=== PATIENT | female | born 1950 | race Caucasian/White ===

== ENCOUNTER 2016-08-08 05:58 | Day surgery (SDC) | payer BC ==
[~2016-08-08] VITALS: Ht 182.9 cm; Wt 116.7 kg
[~2016-08-08 05:58] MED LIST: ACET-2321 PO; EZET10TA PO; FURO-153 PO; GLYB5TAB8 PO; MV-M1TAB18 PO; POTA-12 PO; PRIM50TA30 PO; RIVA20TA PO; SITA1TBM4 PO; SOTA120T PO
--- OUTSIDE RECORDS SUMMARY | 2016-08-08 06:02 | XMS REPORT | Referral Summary ---
Author Author [facility] Organization [facility] Address Unknown Phone Unavailable Care Team Providers Care Typesetting Machine Operator/Tender Name Role Phone Levi Rowe Primary Care Physician [phone] Encounter VC Date(s): 04/16/16 - 04/16/16 [facility] [address] [place] [address] [place] [address]- Discharge Diagnosis: History of adenomatous polyp of colon Discharge Disposition: 01-Home or Self Care Attending Physician: Johnson Palacios MD Admitting Physician: Johnson Palacios MD Referring Physician: Levi Rowe DO Vital Signs Most recent to 1 oldest [Reference Range]: Temperature Tympanic 36.4 degC [36.6-38.1 degC] *LOW* (04/16/16 2:34 PM) Peripheral Pulse 64 bpm Rate [60-100 bpm] (04/16/16 2:34 PM) Blood Pressure 140/80 mmHg [90-140/60-90 mmHg] (04/16/16 2:34 PM) Problem List Condition Effective Dates Status Health Status Informant At risk for activity Active intolerance(Confirme d)1 At risk for Active falls(Confirmed)2 At risk for Active injury(Confirmed)3 Basal cell Active carcinoma(Confirmed) Capillary Active hemangioma(Confirmed ) Hemangioma Active (disorder)(Confirmed ) Inflamed seborrheic Active keratosis (disorder)(Confirmed ) Obesity(Confirmed) Active patient Obesity(Confirmed) Active patient Osteoarthritis of Active right knee(Confirmed) Pure Active hypercholesterolemia (Confirmed) Seborrheic Active keratosis(Confirmed) Seborrheic Active keratosis, inflamed(Confirmed) Solar Active degeneration(Confirm ed) Tachycardia, Active unspecified(Confirme d) Tissue perfusion Active alteration(Confirmed )4 Tremors(Confirmed)5 Active Type 2 Active diabetes(Confirmed) Unspecified Active essential hypertension(Confirm ed) 1Problem added automatically by system based on initiation of At Risk for Activity Intolerance Plan of Care 2This problem was added by Discern Expert. 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 Allergies, Adverse Reactions, Alerts Substance Reaction Severity Status codeine Active iodine famiy Hx of anaphylaxis Active Latex Active penicillin Active statins Muscle weakness Active sulfanilamide topical Active Medications furosemide 40 mg oral tablet See Instructions, TAKE ONE TABLET BY MOUTH DAILY, # 30 tabs, 1 Refill(s), eRx: [facility] #[id number], TAKE ONE TABLET BY MOUTH DAILY Start Date: 03/05/16 Status: Ordered Glucometer Lancets (DME) DME Item Lancets, Ultra Thin - Use to check blood sugars 3-4 times a day, Supply Start Date: 03/03/14 Status: Ordered glyBURIDE 5 mg oral tablet See Instructions, TAKE ONE TABLET BY MOUTH DAILY, # 30 tabs, eRx: [facility] #[id number], TAKE ONE TABLET BY MOUTH DAILY Start Date: 01/22/16 Status: Ordered Janumet XR 50 mg-1000 mg oral tablet, extended release See Instructions, TAKE TWO TABLETS BY MOUTH EVERY EVENING, # 180 unknown unit, eRx: [facility] #[id number], TAKE TWO TABLETS BY MOUTH EVERY EVENING Start Date: 02/19/16 Status: Ordered potassium chloride 10 mEq oral capsule, extended release See Instructions, TAKE ONE CAPSULE BY MOUTH DAILY, # 90 unknown unit, eRx: [facility] #[id number], TAKE ONE CAPSULE BY MOUTH DAILY Start Date: 03/19/16 Status: Ordered primidone 50 mg oral tablet 50 mg 1 tabs, Oral, TID, # 90 tabs, 0 Refill(s) Start Date: 06/29/15 Status: Ordered sotalol 120 mg oral tablet See Instructions, TAKE ONE TABLET BY MOUTH TWICE A DAY, # 60 tabs, 3 Refill(s), eRx: [facility] #[id number], TAKE ONE TABLET BY MOUTH TWICE A DAY Start Date: 03/18/16 Status: Ordered Tylenol Extra Strength 500 mg oral tablet 500 mg 1 tabs, Oral, q4hr, as needed for pain, # 60 tabs, 0 Refill(s) Start Date: 10/24/14 Status: Ordered Tylenol PM 2 tabs, Oral, Bedtime (once a day), 0 Refill(s) Start Date: 10/24/14 Status: Ordered Xarelto 20 mg oral tablet See Instructions, TAKE ONE TABLET BY MOUTH EVERY EVENING WITH EVENING MEAL, # 30 tabs, 2 Refill(s), eRx: [facility] #[id number], TAKE ONE TABLET BY MOUTH EVERY EVENING WITH EVENING MEAL Start Date: 04/01/16 Status: Ordered Zetia 10 mg oral tablet See Instructions, TAKE ONE TABLET BY MOUTH DAILY, # 30 tabs, 2 Refill(s), eRx: [facility] #[id number], TAKE ONE TABLET BY MOUTH DAILY Start Date: 04/01/16 Status: Ordered Results No data available for this section Immunizations Vaccine Date Refusal Reason influenza virus vaccine, inactivated1 03/01/14 influenza virus vaccine, live 03/02/13 1Result Comment: [03/08/2014] see scanned doc. Procedures Procedure Date Related Diagnosis Body Site Colonoscopy1 2011 Hysterectomy2 1989 Excision of basal cell carcinoma 38162 C-Scope W/2 Adenomatous 2TAH-BSO Fro Endometriosis and Ovarian Cysts Social History Social History Type Response Smoking Status Never smoker Assessment and Plan Extracted from: Title: Ambulatory Patient Education Author: Johnson Palacios MD Date: 04/16/16 Family Medicine Colon Polyps Polyps are lumps of extra tissue growing inside the body. Polyps can grow in the large intestine (colon). Most colon polyps are noncancerous (benign). However, some colon polyps can become cancerous over time. Polyps that are larger than a pea may be harmful. To be safe, caregivers remove and test all polyps. CAUSES Polyps form when mutations in the genes cause your cells to grow and divide even though no more tissue is needed. RISK FACTORS There are a number of risk factors that can increase your chances of getting colon polyps. They include: Being older than 50 years. Family history of colon polyps or colon cancer. Long-term colon diseases, such as colitis or Crohn disease. Being overweight. Smoking. Being inactive. Drinking too much alcohol. SYMPTOMS Most small polyps do not cause symptoms. If symptoms are present, they may include: Blood in the stool. The stool may look dark red or black. Constipation or diarrhea that lasts longer than 1 week. DIAGNOSIS People often do not know they have polyps until their caregiver finds them during a regular checkup. Your caregiver can use 4 tests to check for polyps: Digital rectal exam. The caregiver wears gloves and feels inside the rectum. This test would find polyps only in the rectum. Barium enema. The caregiver puts a liquid called barium into your rectum before taking X-rays of your colon. Barium makes your colon look white. Polyps are dark, so they are easy to see in the X-ray pictures. Sigmoidoscopy. A thin, flexible tube (sigmoidoscope) is placed into your rectum. The sigmoidoscope has a light and tiny camera in it. The caregiver uses the sigmoidoscope to look at the last third of your colon. Colonoscopy. This test is like sigmoidoscopy, but the caregiver looks at the entire colon. This is the most common method for finding and removing polyps. TREATMENT Any polyps will be removed during a sigmoidoscopy or colonoscopy. The polyps are then tested for cancer. PREVENTION To help lower your risk of getting more colon polyps: Eat plenty of fruits and vegetables. Avoid eating fatty foods. Do not smoke. Avoid drinking alcohol. Exercise every day. Lose weight if recommended by your caregiver. Eat plenty of calcium and folate. Foods that are rich in calcium include milk, cheese, and broccoli. Foods that are rich in folate include chickpeas, kidney beans, and spinach. HOME CARE INSTRUCTIONS Keep all follow-up appointments as directed by your caregiver. You may need periodic exams to check for polyps. SEEK MEDICAL CARE IF: You notice bleeding during a bowel movement. This information is not intended to replace advice given to you by your health care provider. Make sure you discuss any questions you have with your health care provider. Document Released: 01/22/2005 Document Revised: 05/19/2015 Document Reviewed: [email or web address] Interactive Patient Education 2016 [email or web address] No follow up information was provided.
--- OUTSIDE RECORDS SUMMARY | 2016-08-08 06:02 | XMS REPORT | Referral Summary ---
Author Author [facility] Organization [facility] Address Unknown Phone Unavailable Care Team Providers Care Natural Gas Technician Name Role Phone Levi Rowe Primary Care Physician [phone] Encounter VC Date(s): 10/16/14 - 10/16/14 [facility] [address] [place], [place] [address] Discharge Disposition: 01-Home or Self Care Attending Physician: Carley Mchugh MD Admitting Physician: Carley Mchugh MD Referring Physician: Paris Street MD Vital Signs No data available for this section Problem List Condition Effective Dates Status Health [...] Muscle weakness Active sulfanilamide topical Active Medications Glucometer Lancets (DME) DME Item Lancets, Ultra Thin - Use to check blood sugars 3-4 times a day, Supply Start Date: 03/03/14 Status: Ordered glyBURIDE 5 mg oral tablet See Instructions, TAKE ONE TABLET BY MOUTH DAILY, # 30 tabs, 1 Refill(s), eRx: [facility] #[id number], TAKE ONE TABLET BY MOUTH DAILY Start Date: 03/20/15 Status: Ordered Janumet XR 50 mg-1000 mg oral tablet, extended release 2 tabs, Oral, qPM, # 180 tabs, 3 Refill(s), Pharmacy: [facility] #[id number] Start Date: 12/16/14 Status: Ordered Lasix 40 mg oral tablet 1 tabs, Oral, Daily, # 90 tabs, 2 Refill(s), Pharmacy: [id number], 1 tabs Oral Daily Start Date: 08/19/14 Status: Ordered potassium chloride 10 mEq oral capsule, extended release See Instructions, TAKE ONE CAPSULE BY MOUTH DAILY, # 90 unknown unit, 2 Refill(s ), eRx: [facility] #[id number], TAKE ONE CAPSULE BY MOUTH DAILY Start Date: 01/23/15 Status: Ordered primidone 50 mg, Oral, BID, 0 Refill(s) Start Date: 03/29/14 Status: Ordered sotalol 120 mg oral tablet See Instructions, TAKE ONE TABLET BY MOUTH TWICE A DAY, # 60 tabs, 5 Refill(s), eRx: [facility] #[id number], TAKE ONE TABLET BY MOUTH TWICE A DAY Start Date: 12/26/14 Status: Ordered Tylenol Extra Strength 500 mg oral tablet 500 mg 1 tabs, Oral, q4hr, as needed for pain, # 60 tabs, 0 Refill(s) Start Date: 10/24/14 Status: Ordered Tylenol PM 2 tabs, Oral, Bedtime (once a day), 0 Refill(s) Start Date: 10/24/14 Status: Ordered Xarelto 20 mg oral tablet 20 mg 1 tabs, Oral, With Lunch, 0 Refill(s) Start Date: 10/18/14 Status: Ordered Zetia 10 mg oral tablet See Instructions, TAKE ONE TABLET BY MOUTH DAILY, # 90 tabs, 1 Refill(s), eRx: [facility] #[id number], TAKE ONE TABLET BY MOUTH DAILY Start Date: 02/27/15 Status: Ordered Results No data available for this section Immunizations Vaccine Date Refusal Reason influenza virus vaccine, inactivated1 03/01/14 influenza virus vaccine, live 03/02/13 1Result Comment: [03/08/2014] see scanned doc. Procedures Procedure Date Related Diagnosis Body Site Colonoscopy1 2011 Hysterectomy2 1989 Excision of basal cell carcinoma 18173 C-Scope W/2 Adenomatous 2TAH-BSO Fro Endometriosis and Ovarian Cysts Social History Social History Type Response Smoking Status Never smoker Assessment and Plan No data available for this section
--- OUTSIDE RECORDS SUMMARY | 2016-08-08 06:02 | XMS REPORT | Referral Summary ---
Author Author [facility] Organization [facility] Address Unknown Phone Unavailable Care Team Providers Care Supervisor Public Message Service Name Role Phone Levi Rowe Primary Care Physician [phone] Encounter VC Date(s): 10/14/14 - 10/14/14 [facility] [place] [address]- Discharge Diagnosis: Diabetes mellitus, type II Discharge Diagnosis: Diarrhea Discharge Disposition: 01-Home or Self Care Attending Physician: Levi Rowe DO Admitting Physician: Levi Rowe DO Vital Signs Most recent to 1 oldest [Reference Range]: Temperature Tympanic 36.6 degC [36.6-38.1 degC] (10/14/14 2:24 PM) Blood Pressure 130/80 mmHg [90-140/60-90 mmHg] (10/14/14 2:24 PM) Problem List Condition Effective Dates Status [...] DAILY, # 30 tabs, 1 Refill(s), eRx: [facility] #[id number], TAKE ONE TABLET BY MOUTH DAILY Start Date: 03/20/15 Status: Ordered Janumet XR 50 mg-1000 mg oral tablet, extended release 2 tabs, Oral, qPM, # 180 tabs, 3 Refill(s), Pharmacy: [facility] #[id number] Start Date: 12/16/14 Status: Ordered Lasix 40 mg oral tablet 1 tabs, Oral, Daily, # 90 tabs, 2 Refill(s), Pharmacy: [id number], 1 tabs Oral Daily Start Date: 08/19/14 Status: Ordered potassium chloride 10 mEq oral capsule, extended release See Instructions, TAKE ONE CAPSULE BY MOUTH DAILY, # 90 unknown unit, 2 Refill(s ), eRx: [facility] #[id number], TAKE ONE CAPSULE BY MOUTH DAILY Start Date: 01/23/15 Status: Ordered primidone 50 mg, Oral, BID, 0 Refill(s) Start Date: 03/29/14 Status: Ordered sotalol 120 mg oral tablet See Instructions, TAKE ONE TABLET BY MOUTH TWICE A DAY, # 60 tabs, 5 Refill(s), eRx: [facility] #[id number], TAKE ONE TABLET BY MOUTH TWICE A [...] DAILY, # 90 tabs, 1 Refill(s), eRx: [facility] #[id number], TAKE ONE TABLET BY MOUTH DAILY Start Date: 02/27/15 Status: Ordered Results No data available for this section Immunizations Vaccine Date Refusal Reason influenza virus vaccine, inactivated1 03/01/14 influenza virus vaccine, live 03/02/13 1Result Comment: [03/08/2014] see scanned doc. Procedures Procedure Date Related Diagnosis Body Site Colonoscopy1 2011 Hysterectomy2 1989 Excision of basal cell carcinoma 46330 C-Scope W/2 Adenomatous 2TAH-BSO Fro Endometriosis and Ovarian Cysts Social History Social History Type Response Smoking Status Never smoker Assessment and Plan Extracted from: Title: Office Visit Note Author: Levi Rowe DO Date: 10/14/14 Assessment/Plan Diabetes mellitus, type II 1. Based on her last A1c and her home blood sugars her diabetes is relatively controlled. 2. We ' ll start her on Janumet metformin extended release. 3. We plan on repeating her A1c 3 months from previous. 4. Continue checking blood sugars fasting and 2 hours postprandial following the largest meal of the day, for 3 days per week. 5. Recommended chronic diabetes management appointment 3 months from previous. Diarrhea 1. I suspect her diarrhea likely stools are related to the metformin in particular since she's taking it 4 times a day. 2. Discontinue the metformin. 3. We'll start her on Janumet extended release, , one tablet twice a day. 4. She'll notify me next week if the diarrhea persists. 5. If it resolved with the use of the extended release medication then we plan on changing her to this regimen if her insurance to medication. 6. If she has worsening symptoms then she may warrant stool studies and further evaluation. Ordered: Office Visit Level 3 Est [address]202
--- OUTSIDE RECORDS SUMMARY | 2016-08-08 06:02 | XMS REPORT | Referral Summary ---
Author Author [facility] Organization [facility] Address Unknown Phone Unavailable Care Team Providers Care Building Construction Foreman Name Role Phone Levi Rowe Primary Care Physician [phone] Encounter [facility] Date(s): 09/14/14 - 09/14/14 [facility] [address] [place], [place] [address] Discharge Disposition: 01-Home or Self Care Attending Physician: Jaun Dumont MD Admitting Physician: Jaun Dumont MD Vital Signs Most recent to 1 oldest [Reference Range]: Peripheral Pulse 59 bpm Rate [60-100 bpm] *LOW* (09/14/14 2:01 PM) Blood Pressure 128/86 mmHg [90-140/60-90 mmHg] (09/14/14 2:01 PM) Problem List Condition Effective Dates Status [...] BY MOUTH DAILY, # 30 tabs, eRx: [facility] #[id number], TAKE ONE TABLET BY MOUTH DAILY Start Date: 02/15/15 Status: Ordered Janumet XR 50 mg-1000 mg oral tablet, extended release 2 tabs, Oral, qPM, # 180 tabs, 3 Refill(s), Pharmacy: [facility] #[id number] Start Date: 12/16/14 Status: Ordered Lasix 40 mg oral tablet 1 tabs, Oral, Daily, # 90 tabs, 2 Refill(s), Pharmacy: [facility] 24[facility], 1 tabs Oral Daily Start Date: 08/19/14 Status: Ordered potassium chloride 10 mEq oral capsule, extended release See Instructions, TAKE ONE CAPSULE BY MOUTH DAILY, # 90 unknown unit, 2 Refill(s ), eRx: [facility] #[id number], TAKE ONE CAPSULE BY MOUTH DAILY Start Date: 01/23/15 Status: Ordered primidone 50 mg, Oral, BID, 0 Refill(s) Start Date: 03/29/14 Status: Ordered sotalol 120 mg oral tablet See Instructions, TAKE ONE TABLET BY MOUTH TWICE A DAY, # 60 tabs, 5 Refill(s), eRx: [facility] #[id number], TAKE ONE TABLET BY MOUTH TWICE A [...] DAILY, # 90 tabs, 1 Refill(s), eRx: [facility] #[id number], TAKE ONE TABLET BY MOUTH DAILY Start Date: 02/27/15 Status: Ordered Results No data available for this section Immunizations Vaccine Date Refusal Reason influenza virus vaccine, inactivated1 03/01/14 influenza virus vaccine, live 03/02/13 1Result Comment: [03/08/2014] see scanned doc. Procedures Procedure Date Related Diagnosis Body Site Colonoscopy1 2011 Hysterectomy2 1989 Excision of basal cell carcinoma 60560 C-Scope W/2 Adenomatous 2TAH-BSO Fro Endometriosis and Ovarian Cysts Social History Social History Type Response Smoking Status Never smoker Assessment and Plan No data available for this section
--- OUTSIDE RECORDS SUMMARY | 2016-08-08 06:02 | XMS REPORT | Referral Summary ---
Author Organization Unknown Address Unknown Phone Unavailable Care Team Providers Care Toe Closing Machine Tender Name Role Phone Ayesha Serna Primary Care Physician [phone] Encounter [facility] [id number] Date(s): 09/02/14 - 09/02/14 [facility] [place] [address] [place], [place] [address] Discharge Diagnosis: Type 2 diabetes Discharge Diagnosis: Hypertension Discharge Diagnosis: Preop cardiovascular exam Discharge Diagnosis: Dyslipidemia Discharge Disposition: Home or Self Care Attending Physician: Jaun Dumont MD Admitting Physician: Jaun Dumont MD Vital Signs Most recent to 1 oldest [Reference Range]: Peripheral Pulse 62 bpm Rate [60-100 bpm] (09/02/14 1:53 PM) Blood Pressure 104/80 mmHg [90-140/60-90 mmHg] (09/02/14 1:53 PM) Problem List Condition Effective Dates Status Health Status Informant Basal cell Active carcinoma(Confirmed) Capillary Active hemangioma(Confirmed ) Hemangioma Active (disorder)(Confirmed ) Inflamed seborrheic Active keratosis (disorder)(Confirmed ) Osteoarthritis of Active right knee(Confirmed) Pure Active hypercholesterolemia (Confirmed) Seborrheic Active keratosis(Confirmed) Seborrheic Active keratosis, inflamed(Confirmed) Solar Active degeneration(Confirm ed) Tachycardia, Active unspecified(Confirme d) Tremors(Confirmed)1 Active Type 2 Active diabetes(Confirmed) Unspecified Active essential hypertension(Confirm ed) 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 Allergies, Adverse Reactions, Alerts Substance Reaction Severity Status codeine Active Latex Active penicillin Active statins Muscle weakness Active sulfanilamide topical Active Medications aspirin 325 mg oral tablet 1 tabs, Oral, Daily, 30 min prior Niaspan Special Instructions: 30 min prior Niaspan Start Date: 03/03/14 Status: Ordered bisoprolol 5 mg oral tablet See Instructions, TAKE ONE-HALF TABLET BY MOUTH EVERY DAY, # 45 tabs, 2 Refill(s ), eRx: [facility] #[id number], TAKE ONE-HALF TABLET BY MOUTH EVERY DAY Special Instructions: TAKE ONE-HALF TABLET BY MOUTH EVERY DAY Start Date: 04/28/14 Status: Ordered enalapril 10 mg oral tablet 0.5 tabs, Oral, BID, # 90 tabs, 3 Refill(s), Pharmacy: [facility] [id number], 0.5 tabs Oral BID Start Date: 08/22/14 Status: Ordered Glucometer Lancets (DME) DME Item Lancets, Ultra Thin - Use to check blood sugars 3-4 times a day, Supply Special Instructions: Lancets, Ultra Thin - Use to check blood sugars 3-4 times a day Start Date: 03/03/14 Status: Ordered Lasix 40 mg oral tablet 1 tabs, Oral, Daily, # 90 tabs, 2 Refill(s), Pharmacy: [facility] [id number], 1 tabs Oral Daily Start Date: 08/19/14 Status: Ordered metFORMIN 500 mg oral tablet See Instructions, TAKE ONE TABLET BY MOUTH FOUR TIMES A DAY, # 120 tabs, 2 Refill(s), eRx: [facility] #[id number], TAKE ONE TABLET BY MOUTH FOUR TIMES A DAY Special Instructions: TAKE ONE TABLET BY MOUTH FOUR TIMES A DAY Start Date: 08/22/14 Status: Ordered niacin 750 mg oral tablet, extended release 1 tabs, Oral, Bedtime (once a day), # 30 tabs, 0 Refill(s) Start Date: 09/02/14 Status: Ordered niacin 750 mg oral tablet, extended release See Instructions, TAKE TWO TABLETS BY MOUTH EVERY DAY, # 180 tabs, eRx: [facility] 2428, TAKE TWO TABLETS BY MOUTH EVERY DAY Special Instructions: TAKE TWO TABLETS BY MOUTH EVERY DAY Start Date: 07/28/14 Status: Ordered potassium chloride 10 mEq oral capsule, extended release See Instructions, TAKE ONE CAPSULE BY MOUTH DAILY, # 90 unknown unit, 2 Refill(s ), eRx: [facility] #[id number], TAKE ONE CAPSULE BY MOUTH DAILY Special Instructions: TAKE ONE CAPSULE BY MOUTH DAILY Start Date: 04/21/14 Status: Ordered primidone 10 mg, Oral, BID, 10 mg/5mg, 0 Refill(s) Special Instructions: 10 mg/5mg Start Date: 03/29/14 Status: Ordered Zetia 10 mg oral tablet See Instructions, TAKE ONE TABLET BY MOUTH DAILY, # 90 tabs, 2 Refill(s), eRx: [facility] #[id number], TAKE ONE TABLET BY MOUTH DAILY Special Instructions: TAKE ONE TABLET BY MOUTH DAILY Start Date: 05/09/14 Status: Ordered Results No data available for this section Immunizations Vaccine Date Refusal Reason influenza virus vaccine, inactivated1 03/01/14 influenza virus vaccine, live 03/02/13 1Result Comment: [03/08/2014] see scanned doc. Procedures Procedure Date Related Diagnosis Body Site Colonoscopy1 2011 Hysterectomy2 1989 Excision of basal cell carcinoma 53521 C-Scope W/2 Adenomatous 2TAH-BSO Fro Endometriosis and Ovarian Cysts Social History Social History Type Response Smoking Status Never smoker Assessment and Plan No data available for this section
--- OUTSIDE RECORDS SUMMARY | 2016-08-08 06:02 | XMS REPORT | Referral Summary ---
Author Author [facility] Organization [facility] Address Unknown Phone Unavailable Care Team Providers Care Home Designer Name Role Phone Levi Roew Primary Care Physician [phone] Encounter VC Date(s): 06/29/15 - 06/29/15 [facility] [address] [place], [place] [address] Discharge Diagnosis: Paroxysmal a-fib Discharge Diagnosis: Unspecified essential hypertension Discharge Disposition: 01-Home or Self Care Attending Physician: Caron Short MD Admitting Physician: Caron Short MD Referring Physician: Levi Rowe DO Vital Signs Most recent to 1 oldest [Reference Range]: Peripheral Pulse 60 bpm Rate [60-100 bpm] (06/29/15 11:09 AM) Blood Pressure 130/90 mmHg [90-140/60-90 mmHg] (06/29/15 11:09 AM) Problem List Condition Effective Dates Status Health [...] Active Medications furosemide 40 mg oral tablet 40 mg 1 tabs, Oral, Daily, # 90 tabs, 0 Refill(s), Pharmacy: [facility] # [id number], 1 tabs Oral Daily Start Date: 05/24/15 Status: Ordered Glucometer Lancets (DME) DME Item Lancets, Ultra Thin - Use to check blood sugars 3-4 times a day, Supply Start Date: 03/03/14 Status: Ordered glyBURIDE 5 mg oral tablet See Instructions, TAKE ONE TABLET BY MOUTH DAILY, # 30 tabs, 1 Refill(s), eRx: [facility] #[id number], TAKE ONE TABLET BY MOUTH DAILY Start Date: 06/27/15 Status: Ordered Janumet XR 50 mg-1000 mg oral tablet, extended release 2 tabs, Oral, qPM, # 180 tabs, 3 Refill(s), Pharmacy: [facility] #[id number] Start Date: 12/16/14 Status: Ordered potassium chloride 10 mEq oral capsule, extended release See Instructions, TAKE ONE CAPSULE BY MOUTH DAILY, # 90 unknown unit, 2 Refill(s ), eRx: [facility] #[id number], TAKE ONE CAPSULE BY MOUTH DAILY Start Date: 01/23/15 Status: Ordered primidone 50 mg oral tablet 50 mg 1 tabs, Oral, TID, # 90 tabs, 0 Refill(s) Start Date: 06/29/15 Status: Ordered sotalol 120 mg oral tablet See Instructions, TAKE ONE TABLET BY MOUTH TWICE A DAY, # 60 tabs, 4 Refill(s), eRx: [facility] #[id number], TAKE ONE TABLET BY MOUTH TWICE A DAY Start Date: 06/27/15 Status: Ordered Tylenol Extra Strength 500 mg oral tablet 500 mg 1 tabs, Oral, q4hr, as needed for pain, # 60 tabs, 0 Refill(s) Start Date: 10/24/14 Status: Ordered Tylenol PM 2 tabs, Oral, Bedtime (once a day), 0 Refill(s) Start Date: 10/24/14 Status: Ordered Xarelto 20 mg oral tablet 20 mg 1 tabs, Oral, qPM, # 30 tabs, 0 Refill(s), Pharmacy: [facility] # [id number], 1 tabs Oral qPM Start Date: 06/12/15 Status: Ordered Zetia 10 mg oral tablet See Instructions, TAKE ONE TABLET BY MOUTH DAILY, # 90 tabs, 1 Refill(s), eRx: [facility] #[id number], TAKE ONE TABLET BY MOUTH DAILY Start Date: 02/27/15 Status: Ordered Results No data available for this section Immunizations Vaccine Date Refusal Reason influenza virus vaccine, inactivated1 03/01/14 influenza virus vaccine, live 03/02/13 1Result Comment: [03/08/2014] see scanned doc. Procedures Procedure Date Related Diagnosis Body Site Colonoscopy1 2011 Hysterectomy2 1989 Excision of basal cell carcinoma 33690 C-Scope W/2 Adenomatous 2TAH-BSO Fro Endometriosis and Ovarian Cysts Social History Social History Type Response Smoking Status Never smoker Assessment and Plan Referrals to Other Providers Referred by: Caron Short MD
--- OUTSIDE RECORDS SUMMARY | 2016-08-08 06:02 | XMS REPORT | Referral Summary ---
Author Author [facility] Organization [facility] Address Unknown Phone Unavailable Care Team Providers Care Field Party Manager Name Role Phone Levi Rowe Primary Care Physician [phone] Encounter VC Date(s): 09/14/14 - 09/14/14 [facility] [address], [place] [address] Discharge Disposition: 01-Home or Self Care Attending Physician: Jaun Dumont MD Admitting Physician: Jaun Dumont MD Vital Signs No data available for [...] BY MOUTH DAILY, # 30 tabs, eRx: [facility] #[id number], TAKE ONE TABLET BY MOUTH DAILY Start Date: 02/15/15 Status: Ordered Janumet XR 50 mg-1000 mg oral tablet, extended release 2 tabs, Oral, qPM, # 180 tabs, 3 Refill(s), Pharmacy: [facility] #[id number] Start Date: 12/16/14 Status: Ordered Lasix 40 mg oral tablet 1 tabs, Oral, Daily, # 90 tabs, 2 Refill(s), Pharmacy: [id number], 1 tabs Oral Daily Start Date: 08/19/14 Status: Ordered potassium chloride 10 mEq oral capsule, extended release See Instructions, TAKE ONE CAPSULE BY MOUTH DAILY, # 90 unknown unit, 2 Refill(s ), eRx: [facility] #[id number], TAKE ONE CAPSULE BY MOUTH DAILY Start Date: 01/23/15 Status: Ordered primidone 50 mg, Oral, BID, 0 Refill(s) Start Date: 03/29/14 Status: Ordered sotalol 120 mg oral tablet See Instructions, TAKE ONE TABLET BY MOUTH TWICE A DAY, # 60 tabs, 5 Refill(s), eRx: [facility] #[id number], TAKE ONE TABLET BY MOUTH TWICE A [...] DAILY, # 90 tabs, 1 Refill(s), eRx: [facility] #[id number], TAKE ONE TABLET BY MOUTH DAILY Start Date: 02/27/15 Status: Ordered Results No data available for this section Immunizations Vaccine Date Refusal Reason influenza virus vaccine, inactivated1 03/01/14 influenza virus vaccine, live 03/02/13 1Result Comment: [03/08/2014] see scanned doc. Procedures Procedure Date Related Diagnosis Body Site Colonoscopy1 2011 Hysterectomy2 1989 Excision of basal cell carcinoma 43339 C-Scope W/2 Adenomatous 2TAH-BSO Fro Endometriosis and Ovarian Cysts Social History Social History Type Response Smoking Status Never smoker Assessment and Plan No data available for this section
--- OUTSIDE RECORDS SUMMARY | 2016-08-08 06:02 | XMS REPORT | Referral Summary ---
Author Author [facility] Organization [facility] Address Unknown Phone Unavailable Care Team Providers Care Insurance Account Specialist Name Role Phone Levi Rowe Primary Care Physician [phone] Encounter VC Date(s): 10/18/14 - 10/18/14 [facility] [address], [place] [address] [place] Discharge Disposition: 01-Home or Self Care Attending Physician: Cierra Roberts NP Admitting Physician: Jaun Dumont MD Vital Signs [...] DAILY, # 30 tabs, 1 Refill(s), eRx: [facility] #[id number], TAKE ONE TABLET BY MOUTH DAILY Start Date: 03/20/15 Status: Ordered Janumet XR 50 mg-1000 mg oral tablet, extended release 2 tabs, Oral, qPM, # 180 tabs, 3 Refill(s), Pharmacy: [facility] #[id number] Start Date: 12/16/14 Status: Ordered Lasix 40 mg oral tablet 1 tabs, Oral, Daily, # 90 tabs, 2 Refill(s), Pharmacy: [id number], 1 tabs Oral Daily Start Date: 08/19/14 Status: Ordered potassium chloride 10 mEq oral capsule, extended release See Instructions, TAKE ONE CAPSULE BY MOUTH DAILY, # 90 unknown unit, 2 Refill(s ), eRx: [facility] #[id number], TAKE ONE CAPSULE BY MOUTH DAILY Start Date: 01/23/15 Status: Ordered primidone 50 mg, Oral, BID, 0 Refill(s) Start Date: 03/29/14 Status: Ordered sotalol 120 mg oral tablet See Instructions, TAKE ONE TABLET BY MOUTH TWICE A DAY, # 60 tabs, 5 Refill(s), eRx: [facility] #[id number], TAKE ONE TABLET BY MOUTH TWICE A [...] DAILY, # 90 tabs, 1 Refill(s), eRx: [facility] #[id number], TAKE ONE TABLET BY MOUTH DAILY Start Date: 02/27/15 Status: Ordered Results No data available for this section Immunizations Vaccine Date Refusal Reason influenza virus vaccine, inactivated1 03/01/14 influenza virus vaccine, live 03/02/13 1Result Comment: [03/08/2014] see scanned doc. Procedures Procedure Date Related Diagnosis Body Site Colonoscopy1 2011 Hysterectomy2 1989 Excision of basal cell carcinoma 99882 C-Scope W/2 Adenomatous 2TAH-BSO Fro Endometriosis and Ovarian Cysts Social History Social History Type Response Smoking Status Never smoker Assessment and Plan No data available for this section
--- OUTSIDE RECORDS SUMMARY | 2016-08-08 06:02 | XMS REPORT | Referral Summary ---
Author Author [facility] Organization [facility] Address Unknown Phone Unavailable Care Team Providers Care Hot Box Checker Name Role Phone Levi Rowe Primary Care Physician [phone] Encounter VC Date(s): 07/03/16 - 07/03/16 [facility] [place] [address]- Discharge Diagnosis: Benign essential tremor Discharge Disposition: 01-Home or Self Care Attending Physician: Levi Rowe DO Admitting Physician: Levi Rowe DO Vital Signs Most recent to 1 oldest [Reference Range]: Temperature Tympanic 36.2 degC [36.6-38.1 degC] *LOW* (07/03/16 8:28 AM) Peripheral Pulse 63 bpm Rate [60-100 bpm] (07/03/16 8:28 AM) Respiratory Rate 18 br/min [14-20 br/min] (07/03/16 8:28 AM) Blood Pressure 130/58 mmHg [90-140/60-90 mmHg] (07/03/16 8:28 AM) SpO2 95 % (07/03/16 8:28 AM) Problem List Condition Effective Dates Status Health Status Informant Paroxysmal Active a-fib(Confirmed) At risk for activity Active intolerance(Confirme d)1 [...] BY MOUTH DAILY, # 30 tabs, eRx: [facility] #[id number] Start Date: 05/07/16 Status: Ordered Glucometer Lancets (DME) DME Item Lancets, Ultra Thin - Use to check blood sugars 3-4 times a day, Supply Start Date: 03/03/14 Status: Ordered glyBURIDE 5 mg oral tablet See Instructions, TAKE ONE TABLET BY MOUTH DAILY, # 30 tabs, eRx: [facility] #[id number], TAKE ONE TABLET BY MOUTH DAILY Start Date: 01/22/16 Status: Ordered Janumet XR 50 mg-1000 mg oral tablet, extended release See Instructions, TAKE TWO TABLETS BY MOUTH EVERY EVENING, # 180 unknown unit, eRx: [facility] #[id number], TAKE TWO TABLETS BY MOUTH EVERY EVENING Start Date: 02/19/16 Status: Ordered potassium chloride 10 mEq oral capsule, extended release See Instructions, TAKE ONE CAPSULE BY MOUTH DAILY, # 90 unknown unit, eRx: [facility] #[id number], TAKE ONE CAPSULE BY MOUTH DAILY Start Date: 03/19/16 Status: Ordered primidone 50 mg oral tablet 50 mg 1 tabs, Oral, TID, # 90 tabs, 0 Refill(s), Pharmacy: [facility] # [id number], 1 tabs Oral TID Start Date: 07/03/16 Status: Ordered sotalol 120 mg oral tablet 120 mg 1 tabs, Oral, BID, # 60 tabs, 3 Refill(s), eRx: [facility] #[id number] Start Date: 03/18/16 Status: Ordered Tylenol Extra Strength 500 mg oral tablet 500 mg 1 tabs, Oral, q4hr, as needed for pain, # 60 tabs, 0 Refill(s) Start Date: 10/24/14 Status: Ordered Tylenol PM 2 tabs, Oral, Bedtime (once a day), 0 Refill(s) Start Date: 10/24/14 Status: Ordered Xarelto 20 mg oral tablet 20 mg 1 tabs, Oral, Daily, # 30 tabs, 5 Refill(s), eRx: [facility] #[id number] Start Date: 06/14/16 Status: Ordered Zetia 10 mg oral tablet See Instructions, TAKE ONE TABLET BY MOUTH DAILY, # 30 tabs, 2 Refill(s), eRx: [facility] #[id number] Start Date: 07/01/16 Status: Ordered Results No data available for this section Immunizations Given and Recorded Vaccine Date Status Refusal Reason influenza virus vaccine, inactivated1 03/01/14 Recorded influenza virus vaccine, live 03/02/13 Given 1Result Comment: [03/08/2014] see scanned doc. Procedures Procedure Date Related Diagnosis Body Site Colonoscopy1 2011 Hysterectomy2 1989 Excision of basal cell carcinoma 62783 C-Scope W/2 Adenomatous 2TAH-BSO Fro Endometriosis and Ovarian Cysts Social History Social History Type Response Smoking Status Never smoker Assessment and Plan Extracted from: Title: Office Visit Note Author: Levi Rowe DO Date: 07/03/16 Assessment/Plan 1.Benign essential tremor 1. Continue with Primidone 50mg tid 2. If worsening then we plan on referring her to Neurologist in [place] for a second opinion since she does not want to continue seeing Dr Chavarria. Ordered: Office Visit Level 3 Est 19738
--- OUTSIDE RECORDS SUMMARY | 2016-08-08 06:02 | XMS REPORT | Referral Summary ---
Author Author [facility] Organization [facility] Address Unknown Phone Unavailable Care Team Providers Care Core Manager Name Role Phone Levi Rowe Primary Care Physician [phone] Encounter VC Date(s): 07/03/16 - 07/03/16 [facility] [address], [place] [address] Discharge Diagnosis: Hypertension Discharge Diagnosis: Paroxysmal a-fib Discharge Disposition: 01-Home or Self Care Attending Physician: Caron Short MD Referring Physician: Levi Rowe DO Vital Signs Most recent to 1 oldest [Reference Range]: Peripheral Pulse 58 bpm Rate [60-100 bpm] *LOW* (07/03/16 12:52 PM) Blood Pressure 140/90 mmHg [90-140/60-90 mmHg] (07/03/16 12:52 PM) Problem List Condition Effective Dates Status [...] BY MOUTH DAILY, # 30 tabs, eRx: [facility] #[id number] Start Date: 05/07/16 Status: Ordered Glucometer Lancets (DME) DME Item Lancets, Ultra Thin - Use to check blood sugars 3-4 times a day, Supply Start Date: 03/03/14 Status: Ordered glyBURIDE 5 mg oral tablet See Instructions, TAKE ONE TABLET BY MOUTH DAILY, # 30 tabs, eRx: [facility] #[id number], TAKE ONE TABLET BY MOUTH DAILY Start Date: 01/22/16 Status: Ordered Janumet XR 50 mg-1000 mg oral tablet, extended release See Instructions, TAKE TWO TABLETS BY MOUTH EVERY EVENING, # 180 unknown unit, eRx: [facility] #[id number], TAKE TWO TABLETS BY MOUTH EVERY EVENING Start Date: 02/19/16 Status: Ordered potassium chloride 10 mEq oral capsule, extended release See Instructions, TAKE ONE CAPSULE BY MOUTH DAILY, # 90 unknown unit, eRx: [facility] #[id number], TAKE ONE CAPSULE BY MOUTH DAILY Start Date: 03/19/16 Status: Ordered primidone 50 mg oral tablet 50 mg 1 tabs, Oral, TID, # 90 tabs, 0 Refill(s), Pharmacy: [facility] # [id number], 1 tabs Oral TID Start Date: 07/03/16 Status: Ordered sotalol 120 mg oral tablet 120 mg 1 tabs, Oral, BID, # 60 tabs, 3 Refill(s), eRx: [facility] #[id number] Start Date: 03/18/16 Status: Ordered Tylenol Extra [...] Daily, # 30 tabs, 5 Refill(s), eRx: [facility] #[id number] Start Date: 06/14/16 Status: Ordered Zetia 10 mg oral tablet See Instructions, TAKE ONE TABLET BY MOUTH DAILY, # 30 tabs, 2 Refill(s), eRx: [facility] #[id number] Start Date: 07/01/16 Status: Ordered Results No data available for this section Immunizations Given and Recorded Vaccine Date Status Refusal Reason influenza virus vaccine, inactivated1 03/01/14 Recorded influenza virus vaccine, live 03/02/13 Given 1Result Comment: [03/08/2014] see scanned doc. Procedures Procedure Date Related Diagnosis Body Site Colonoscopy1 2011 Hysterectomy2 1989 Excision of basal cell carcinoma 19339 C-Scope W/2 Adenomatous 2TAH-BSO Fro Endometriosis and Ovarian Cysts Social History Social History Type Response Smoking Status Never smoker Assessment and Plan Referrals to Other Providers Referred by: Caron Short MD Referred by: Caron Short MD
--- OUTSIDE RECORDS SUMMARY | 2016-08-08 06:03 | XMS REPORT | Referral Summary ---
Author Author [facility] Organization [facility] Address Unknown Phone Unavailable Care Team Providers Care Curtain Fitter Name Role Phone Levi Rowe Primary Care Physician [phone] Encounter VC Date(s): 10/17/14 - 10/17/14 [facility] [address], [place] [address] Discharge Disposition: 01-Home or Self Care Attending Physician: Caron Short MD Admitting Physician: Caron Short MD Referring Physician: Levi Rowe DO Vital Signs No data available for this [...] DAILY, # 30 tabs, 1 Refill(s), eRx: [facility] #[id number], TAKE ONE TABLET BY MOUTH DAILY Start Date: 03/20/15 Status: Ordered Janumet XR 50 mg-1000 mg oral tablet, extended release 2 tabs, Oral, qPM, # 180 tabs, 3 Refill(s), Pharmacy: [facility] #[id number] Start Date: 12/16/14 Status: Ordered Lasix 40 mg oral tablet 1 tabs, Oral, Daily, # 90 tabs, 2 Refill(s), Pharmacy: [id number], 1 tabs Oral Daily Start Date: 08/19/14 Status: Ordered potassium chloride 10 mEq oral capsule, extended release See Instructions, TAKE ONE CAPSULE BY MOUTH DAILY, # 90 unknown unit, 2 Refill(s ), eRx: [facility] #[id number], TAKE ONE CAPSULE BY MOUTH DAILY Start Date: 01/23/15 Status: Ordered primidone 50 mg, Oral, BID, 0 Refill(s) Start Date: 03/29/14 Status: Ordered sotalol 120 mg oral tablet See Instructions, TAKE ONE TABLET BY MOUTH TWICE A DAY, # 60 tabs, 5 Refill(s), eRx: [facility] #[id number], TAKE ONE TABLET BY MOUTH TWICE A [...] DAILY, # 90 tabs, 1 Refill(s), eRx: [facility] #[id number], TAKE ONE TABLET BY MOUTH DAILY Start Date: 02/27/15 Status: Ordered Results No data available for this section Immunizations Vaccine Date Refusal Reason influenza virus vaccine, inactivated1 03/01/14 influenza virus vaccine, live 03/02/13 1Result Comment: [03/08/2014] see scanned doc. Procedures Procedure Date Related Diagnosis Body Site Colonoscopy1 2011 Hysterectomy2 1989 Excision of basal cell carcinoma 83355 C-Scope W/2 Adenomatous 2TAH-BSO Fro Endometriosis and Ovarian Cysts Social History Social History Type Response Smoking Status Never smoker Assessment and Plan No data available for this section
--- OUTSIDE RECORDS SUMMARY | 2016-08-08 06:03 | XMS REPORT | Referral Summary ---
Author Author [facility] Organization [facility] Address Unknown Phone Unavailable Care Team Providers Care Letterset Press Set Up Operator Name Role Phone Soledad Levi Primary Care Physician [phone] Encounter VC Date(s): 10/24/14 - 10/24/14 [facility] [address], [place] [address] Discharge Diagnosis: Hypertension Discharge Diagnosis: AF (atrial fibrillation) Discharge Diagnosis: Chronic anticoagulation Discharge Disposition: 01-Home or Self Care Attending Physician: Mahsa Reynaga APRN Admitting Physician: Mahsa Reynaga APRN Vital Signs Most recent to 1 oldest [Reference Range]: Peripheral Pulse 68 bpm Rate [60-100 bpm] (10/24/14 12:59 PM) Blood Pressure 138/92 mmHg [90-140/60-90 mmHg] (10/24/14 12:59 PM) Problem List Condition Effective Dates Status [...] DAILY, # 30 tabs, 1 Refill(s), eRx: [facility] #[id number], TAKE ONE TABLET BY MOUTH DAILY Start Date: 03/20/15 Status: Ordered Janumet XR 50 mg-1000 mg oral tablet, extended release 2 tabs, Oral, qPM, # 180 tabs, 3 Refill(s), Pharmacy: [facility] #[id number] Start Date: 12/16/14 Status: Ordered Lasix 40 mg oral tablet 1 tabs, Oral, Daily, # 90 tabs, 2 Refill(s), Pharmacy: [id number], 1 tabs Oral Daily Start Date: 08/19/14 Status: Ordered potassium chloride 10 mEq oral capsule, extended release See Instructions, TAKE ONE CAPSULE BY MOUTH DAILY, # 90 unknown unit, 2 Refill(s ), eRx: [facility] #[id number], TAKE ONE CAPSULE BY MOUTH DAILY Start Date: 01/23/15 Status: Ordered primidone 50 mg, Oral, BID, 0 Refill(s) Start Date: 03/29/14 Status: Ordered sotalol 120 mg oral tablet See Instructions, TAKE ONE TABLET BY MOUTH TWICE A DAY, # 60 tabs, 5 Refill(s), eRx: [facility] #[id number], TAKE ONE TABLET BY MOUTH TWICE A [...] DAILY, # 90 tabs, 1 Refill(s), eRx: [facility] #[id number], TAKE ONE TABLET BY MOUTH DAILY Start Date: 02/27/15 Status: Ordered Results No data available for this section Immunizations Vaccine Date Refusal Reason influenza virus vaccine, inactivated1 03/01/14 influenza virus vaccine, live 03/02/13 1Result Comment: [03/08/2014] see scanned doc. Procedures Procedure Date Related Diagnosis Body Site Colonoscopy1 2011 Hysterectomy2 1989 Excision of basal cell carcinoma 54950 C-Scope W/2 Adenomatous 2TAH-BSO Fro Endometriosis and Ovarian Cysts Social History Social History Type Response Smoking Status Never smoker Assessment and Plan Extracted from: Title: Ambulatory Patient Education Author: Mahsa Reynaga ENVIRONMENTAL SPECIALIST Date: Family Medicine Atrial Fibrillation Atrial fibrillation is a type of irregular heart rhythm (arrhythmia ). During atrial fibrillation, the upper chambers of the heart (atria ) quiver continuously in a chaotic pattern. This causes an irregular and often rapid heart rate. Atrial fibrillation is the result of the heart becoming overloaded with disorganized signals that tell it to beat. These signals are normally released one at a time by a part of the right atrium called the sinoatrial node. They then travel from the atria to the lower chambers of the heart (ventricles ), causing the atria and ventricles to contract and pump blood as they pass. In atrial fibrillation, parts of the atria outside of the sinoatrial node also release these signals. This results in two problems. First, the atria receive so many signals that they do not have time to fully contract. Second, the ventricles, which can only receive one signal at a time, beat irregularly and out of rhythm with the atria. There are three types of atrial fibrillation: ParoxysmalParoxysmal atrial fibrillation starts suddenly and stops on its own within a week. PersistentPersistent atrial fibrillation lasts for more than a week. It may stop on its own or with treatment. PermanentPermanent atrial fibrillation does not go away. Episodes of atrial fibrillation may lead to permanent atrial fibrillation. Atrial fibrillation can prevent your heart from pumping blood normally. It increases your risk of stroke and can lead to heart failure. CAUSES Heart conditions, including a heart attack, heart failure, coronary artery disease, and heart valve conditions. Inflammation of the sac that surrounds the heart (pericarditis ). Blockage of an artery in the lungs (pulmonary embolism ). Pneumonia or other infections. Chronic lung disease. Thyroid problems, especially if the thyroid is overactive (hyperthyroidism ). Caffeine, excessive alcohol use, and use of some illegal drugs. Use of some medications, including certain decongestants and diet pills. Heart surgery. defects. Sometimes, no cause can be found. When this happens, the atrial fibrillation is called lone atrial fibrillation. The risk of complications from atrial fibrillation increases if you have lone atrial fibrillation and you are age 60 years or older. RISK FACTORS Heart failure. Coronary artery disease Diabetes mellitus. High blood pressure (hypertension ). Obesity. Other arrhythmias. Increased age. SYMPTOMS A feeling that your heart is beating rapidly or irregularly. A feeling of discomfort or pain in your chest. Shortness of breath. Sudden lightheadedness or weakness. Getting tired easily when exercising. Urinating more often than normal (mainly when atrial fibrillation first begins). In paroxysmal atrial fibrillation, symptoms may start and suddenly stop. DIAGNOSIS Your caregiver may be able to detect atrial fibrillation when taking your pulse. Usually, testing is needed to diagnosis atrial fibrillation. Tests may include: Electrocardiography. During this test, the electrical impulses of your heart are recorded while you are lying down. Echocardiography. During echocardiography, sound waves are used to evaluate how blood flows through your heart. Stress test. There is more than one type of stress test. If a stress test is needed, ask your caregiver about which type is best for you. Chest X-ray exam. Blood tests. Computed tomography (CT). TREATMENT Treating any underlying conditions. For example, if you have an overactive thyroid, treating the condition may correct atrial fibrillation. Medication. Medications may be given to control a rapid heart rate or to prevent blood clots, heart failure, or a stroke. Procedure to correct the rhythm of the heart: Electrical cardioversion. During electrical cardioversion, a controlled, low-energy shock is delivered to the heart through your skin. If you have chest pain, very low pressure blood pressure, or sudden heart failure, this procedure may need to be done as an emergency. Catheter ablation. During this procedure, heart tissues that send the signals that cause atrial fibrillation are destroyed. Maze or minimaze procedure. During this surgery, thin lines of heart tissue that carry the abnormal signals are destroyed. The maze procedure is an open-heart surgery. The minimaze procedure is a minimally invasive surgery. This means that small cuts are made to access the heart instead of a large opening. Pulmonary venous isolation. During this surgery, tissue around the veins that carry blood from the lungs (pulmonary veins) is destroyed. This tissue is thought to carry the abnormal signals. HOME CARE INSTRUCTIONS Take medications as directed by your caregiver. Only take medications that your caregiver approves. Some medications can make atrial fibrillation worse or recur. If blood thinners were prescribed by your caregiver, take them exactly as directed. Too much can cause bleeding. Too little and you will not have the needed protection against stroke and other problems. Perform blood tests at home if directed by your caregiver. Perform blood tests exactly as directed. Quit smoking if you smoke. Do not drink alcohol. Do not drink caffeinated beverages such as coffee, soda, and some teas. You may drink decaffeinated coffee, soda, or tea. Maintain a healthy weight. Do not use diet pills unless your caregiver approves. They may make heart problems worse. Follow diet instructions as directed by your caregiver. Exercise regularly as directed by your caregiver. Keep all follow-up appointments. PREVENTION The following substances can cause atrial fibrillation to recur: Caffeinated beverages. Alcohol. Certain medications, especially those used for breathing problems. Certain herbs and herbal medications, such as those containing ephedra or ginseng. Illegal drugs such as cocaine and amphetamines. Sometimes medications are given to prevent atrial fibrillation from recurring. Proper treatment of any underlying condition is also important in helping prevent recurrence. SEEK MEDICAL CARE IF: You notice a change in the rate, rhythm, or strength of your heartbeat. You suddenly begin urinating more frequently. You tire more easily when exerting yourself or exercising. SEEK IMMEDIATE MEDICAL CARE IF: You develop chest pain, abdominal pain, sweating, or weakness. You feel sick to your stomach (nauseous ). You develop shortness of breath. You suddenly develop swollen feet and ankles. You feel dizzy. You face or limbs feel numb or weak. There is a change in your vision or speech. MAKE SURE YOU: Understand these instructions. Will watch your condition. Will get help right away if you are not doing well or get worse. Document Released: 04/28/2006 Document Revised: 08/23/2013 Document Reviewed: [employer] Patient Information 2014 [employer]. Anticoagulation, Generic Anticoagulants are medications used to prevent clots from developing in your veins. These medications are also known as blood thinners. If blood clots are untreated, they could travel to your lungs. This is called a pulmonary embolus. A blood clot in your lungs can be fatal. Caregivers often use anticoagulants to prevent clots following surgery. Anticoagulants are also used along with aspirin when the heart is not getting enough blood. Another anticoagulant called warfarin is started 2 to 3 days after a rapid- acting injectable anticoagulant is started. The rapid-acting anticoagulants are usually continued until warfarin has begun to work. Your caregiver will fruit peeler this length of time by blood tests known as the prothrombin time (PT) and International Normalization Ratio (INR). This means that your blood is at the necessary and best level to prevent clots. RISKS AND COMPLICATIONS If you have received recent epidural anesthesia, spinal anesthesia, or a spinal tap while receiving anticoagulants, you are at risk for developing a blood clot in or around the spine. This condition could result in long-term or permanent paralysis. Because anticoagulants thin your blood, severe bleeding may occur from any tissue or organ. Symptoms of the blood being too thin may include: Bleeding from the nose or gums that does not stop quickly. Unusual bruising or bruising easily. Swelling or pain at an injection site. A cut that does not stop bleeding within 10 minutes. Continual nausea for more than 1 day or vomiting blood. Coughing up blood. Blood in the urine which may appear as pink, red, or brown urine. Blood in bowel movements which may appear as red, dark or black stools. Sudden weakness or numbness of the face, arm, or leg, especially on one side of the body. Sudden confusion. Trouble speaking (aphasia ) or understanding. Sudden trouble seeing in one or both eyes. Sudden trouble walking. Dizziness. Loss of balance or coordination. Severe pain, such as a headache, joint pain, or back pain. Fever. Too little anticoagulation continues to allow the risk for blood clots. HOME CARE INSTRUCTIONS Due to the complications of anticoagulants, it is very important that you take your anticoagulant as directed by your caregiver. Anticoagulants need to be taken exactly as instructed. Be sure you understand all your anticoagulant instructions. Warfarin. Your caregiver will advise you on the length of treatment ( usually 36 months, sometimes lifelong). Take warfarin exactly as directed by your caregiver. It is recommended that you take your warfarin dose at the same time of the day. It is preferred that you take warfarin in the late afternoon. If you have been told to stop taking warfarin, do not resume taking warfarin until directed to do so by your caregiver. Follow your caregiver's instructions if you accidentally take an extra dose or miss a dose of warfarin. It is very important to take warfarin as directed since bleeding or blood clots could result in chronic or permanent injury, pain, or disability. Too much and too little warfarin are both dangerous. Too much warfarin increases the risk of bleeding. Too little warfarin continues to allow the risk for blood clots. While taking warfarin, you will need to have regular blood tests to measure your blood clotting time. These blood tests usually include both the PT and INR tests. The PT and INR results allow your caregiver to adjust your dose of warfarin. The dose can change for many reasons. It is critically important that you take warfarin exactly as prescribed, and that you have your PT and INR levels drawn exactly as directed. Follow up with your laboratory test appointments as directed. It is very important to keep your lab appointments. Not keeping lab appointments could result in a chronic or permanent injury, pain, or disability. Many foods, especially foods high in vitamin K can interfere with warfarin and affect the PT and INR results. Foods high in vitamin K include spinach, kale, broccoli, cabbage, pawel and turnip greens, brussels sprouts, peas, cauliflower, seaweed, and parsley as well as beef and pork liver, green tea, and soybean oil. You should eat a consistent amount of foods high in vitamin K. Avoid major changes in your diet, or notify your caregiver before changing your diet. Arrange a visit with a dietitian to answer your questions. Many medicines can interfere with warfarin and affect the PT and INR results. You must tell your caregiver about any and all medicines you take, this includes all vitamins and supplements. Ask your caregiver before taking these. Prescription and rfjr-wds-pdlksem medicine consistency is critical to warfarin management. It is important that potential interactions are checked before you start a new medicine. Be especially cautious with aspirin and anti- inflammatory medicines. Ask your caregiver before taking these. Medicines such as antibiotics and acid-reducing medicine can interact with warfarin and can cause an increased warfarin effect. Warfarin can also interfere with the effectiveness of medicines you are taking. Do not take or discontinue any prescribed or arpf-qst-rvjbmwe medicine except on the advice of your caregiver or pharmacist. Some vitamins, supplements, and herbal products interfere with the effectiveness of warfarin. Vitamin E may increase the anticoagulant effects of warfarin. Vitamin K may can cause warfarin to be less effective. Do not take or discontinue any vitamin, supplement, or herbal product except on the advice of your caregiver or pharmacist. Alcohol can change the body's ability to handle warfarin. It is best to avoid alcoholic drinks or consume only very small amounts while taking warfarin. Notify your caregiver if you change your alcohol intake. A sudden increase in alcohol use can increase your risk of bleeding. Chronic alcohol use can cause warfarin to be less effective. If you have a loss of appetite or get the stomach flu (viral gastroenteritis ), talk to your caregiver as soon as possible. A decrease in your normal vitamin K intake can make you more sensitive to your usual dose of warfarin. Some medical conditions may increase your risk for bleeding while you are taking warfarin. A fever, diarrhea lasting more than a day, worsening heart failure, or worsening liver function are some medical conditions that could affect warfarin. Contact your caregiver if you have any of these medical conditions. Warfarin can have side effects, such as excessive bruising or bleeding. You will need to hold pressure over cuts for longer than usual. Be careful not to cut yourself when using sharp objects. Notify your dentist or other caregivers before procedures. Limit physical activities or sports that could result in a fall or cause injury. Avoid contact sports. Wear a medical alert bracelet or carry a medical alert card. SEEK MEDICAL CARE IF: You develop any rashes. You have any worsening of the condition for which you are receiving anticoagulation therapy. SEEK IMMEDIATE MEDICAL CARE IF: Bleeding from the nose or gums does not stop quickly. You have unusual bruising or are bruising easily. Swelling or pain occurs at an injection site. A cut does not stop bleeding within 10 minutes. You have continual nausea for more than 1 day or are vomiting blood. You are coughing up blood. You have blood in the urine. You have dark or black stools. You have sudden weakness or numbness of the face, arm, or leg, especially on one side of the body. You have sudden confusion. You have trouble speaking (aphasia ) or understanding. You have sudden trouble seeing in one or both eyes. You have sudden trouble walking. You have dizziness. You have a loss of balance or coordination. You have severe pain, such as a headache, joint pain, or back pain. You have a serious fall or head injury, even if you are not bleeding. You have an oral temperature above 102 F (38.9 C), not controlled by medicine. ANY OF THESE SYMPTOMS MAY REPRESENT A SERIOUS PROBLEM THAT IS AN EMERGENCY. Do not wait to see if the symptoms will go away. Get medical help right away. Call your local emergency services (911 in [place] DO NOT drive yourself to the hospital. MAKE SURE YOU: Understand these instructions. Will watch your condition. Will get help right away if you are not doing well or get worse. Document Released: 04/28/2006 Document Revised: 01/20/2013 Document Reviewed: [employer] Patient Information 2014 [employer]. No follow up information was provided. Extracted from: Title: Office Visit Note Author: Mahsa Reynaga APRN Date: 10/24/14 Assessment/Plan 1.AF (atrial fibrillation) Sotalol 80mg BID, repeat EKG Friday Xarelto 20mg Ordered: Request for Cardiovascular ECG 2.Hypertension Per primary cardiology currently elevated diastolic Home trend stable-continue to monitor Parameters to report and proper home monitor discussed 3.Chronic anticoagulation Xarelto for now as long as affordable. If not transition to Warfarin Orders: sotalol, 80 mg 1 tabs, Oral, BID, # 60 tabs, 6 Refill(s), other reason (Rx), 1/2 a pill two times daily
--- OUTSIDE RECORDS SUMMARY | 2016-08-08 06:03 | XMS REPORT | Referral Summary ---
Author Author [facility] Organization [facility] Address Unknown Phone Unavailable Care Team Providers Care Wellness Instructor Name Role Phone Levi Rowe Primary Care Physician [phone] Encounter VC Date(s): 10/19/14 - 10/19/14 [facility] [place] [address]- Discharge Diagnosis: A-fib Discharge Diagnosis: Type 2 diabetes, HbA1C goal < 7% Discharge Disposition: 01-Home or Self Care Attending Physician: Levi Rowe DO Admitting Physician: Levi Rowe DO Vital Signs Most recent to 1 oldest [Reference Range]: Temperature Tympanic 36.3 degC [36.6-38.1 degC] *LOW* (10/19/14 1:52 PM) Peripheral Pulse 74 bpm Rate [60-100 bpm] (10/19/14 1:52 PM) Blood Pressure 127/71 mmHg [90-140/60-90 mmHg] (10/19/14 1:52 PM) Problem List Condition Effective Dates Status [...] DAILY, # 30 tabs, 1 Refill(s), eRx: [facility] #[id number], TAKE ONE TABLET BY MOUTH DAILY Start Date: 03/20/15 Status: Ordered Janumet XR 50 mg-1000 mg oral tablet, extended release 2 tabs, Oral, qPM, # 180 tabs, 3 Refill(s), Pharmacy: [facility] #[id number] Start Date: 12/16/14 Status: Ordered Lasix 40 mg oral tablet 1 tabs, Oral, Daily, # 90 tabs, 2 Refill(s), Pharmacy: [id number], 1 tabs Oral Daily Start Date: 08/19/14 Status: Ordered potassium chloride 10 mEq oral capsule, extended release See Instructions, TAKE ONE CAPSULE BY MOUTH DAILY, # 90 unknown unit, 2 Refill(s ), eRx: [facility] #[id number], TAKE ONE CAPSULE BY MOUTH DAILY Start Date: 01/23/15 Status: Ordered primidone 50 mg, Oral, BID, 0 Refill(s) Start Date: 03/29/14 Status: Ordered sotalol 120 mg oral tablet See Instructions, TAKE ONE TABLET BY MOUTH TWICE A DAY, # 60 tabs, 5 Refill(s), eRx: [facility] #[id number], TAKE ONE TABLET BY MOUTH TWICE A [...] Refill(s), eRx: [facility] #[id number], TAKE ONE TABLET BY MOUTH DAILY Start Date: 02/27/15 Status: Ordered Results No data available for this section Immunizations Vaccine Date Refusal Reason influenza virus vaccine, inactivated1 03/01/14 influenza virus vaccine, live 03/02/13 1Result Comment: [03/08/2014] see scanned doc. Procedures Procedure Date Related Diagnosis Body Site Colonoscopy1 2011 Hysterectomy2 1989 Excision of basal cell carcinoma 18464 C-Scope W/2 Adenomatous 2TAH-BSO Fro Endometriosis and Ovarian Cysts Social History Social History Type Response Smoking Status Never smoker Assessment and Plan Extracted from: Title: Office Visit Note Author: Levi Rowe DO Date: 10/19/14 Assessment/Plan A-fib 1. Continue with recommendations as per the yard pipe grader and make up editor at her recent hospitalization. 2. Agree with continued Xarelto for concern for hypercoagulability should she go back into atrial fibrillation. 3. Keep appointment to see the yard pipe grader and make up editor. 4. Hospital records reviewed in detail to include labs and consult reports. 5. Recommended that she restart her potassium at 10 mEq daily since she is on Lasix. 6. Will recheck her basic metabolic profile and magnesium in one week and adjust electrolytes accordingly. 7. Continue with her physical therapy for rehabilitation of right knee replacement. Type 2 diabetes, HbA1C goal < 7% 1. She would like to try managing her diabetes with lifestyle changes and decreasing her daily caloric intake. 2. I am agreeable and allowing her to try controlling her diabetes with diet and exercise. 3. Recommended checking her blood sugars fasting and 2 hours postprandial 3 days per week. If her blood sugars aren't well-controlled then my recommendation will be to restart the Janumet. 4. Recommended following up in one week with her home blood sugar readings for review. 25 minutes were spent [id number] with this patient today.
--- OUTSIDE RECORDS SUMMARY | 2016-08-08 06:03 | XMS REPORT | Continuity of Care Document ---
Author Author [facility] Organization [facility] Address Unknown Phone Unavailable Allergies Medications Problems Procedures Results Encounters ACCT No. Visit Date/Time Discharge Status Pt. Type Provider Facility Loc./Unit Complaint [id number] 03/02/2013 11:52:00 03/02/2013 23 :59:59 C[facility] Outpatient
--- OUTSIDE RECORDS SUMMARY | 2016-08-08 06:03 | XMS REPORT | Referral Summary ---
Author Author [facility] Organization [facility] Address Unknown Phone Unavailable Care Team Providers Care Field Captain Name Role Phone Levi Rowe Primary Care Physician [phone] Encounter VC Date(s): 10/28/14 - 10/28/14 [facility] [address], [place] [address] Discharge Disposition: 01-Home or Self Care Attending Physician: Levi Rowe DO Admitting Physician: Mahsa Reynaga APRN Vital Signs No data available for this [...] DAILY, # 30 tabs, 1 Refill(s), eRx: [facility] #[id number], TAKE ONE TABLET BY MOUTH DAILY Start Date: 03/20/15 Status: Ordered Janumet XR 50 mg-1000 mg oral tablet, extended release 2 tabs, Oral, qPM, # 180 tabs, 3 Refill(s), Pharmacy: [facility] #[id number] Start Date: 12/16/14 Status: Ordered Lasix 40 mg oral tablet 1 tabs, Oral, Daily, # 90 tabs, 2 Refill(s), Pharmacy: [id number], 1 tabs Oral Daily Start Date: 08/19/14 Status: Ordered potassium chloride 10 mEq oral capsule, extended release See Instructions, TAKE ONE CAPSULE BY MOUTH DAILY, # 90 unknown unit, 2 Refill(s ), eRx: [facility] #[id number], TAKE ONE CAPSULE BY MOUTH DAILY Start Date: 01/23/15 Status: Ordered primidone 50 mg, Oral, BID, 0 Refill(s) Start Date: 03/29/14 Status: Ordered sotalol 120 mg oral tablet See Instructions, TAKE ONE TABLET BY MOUTH TWICE A DAY, # 60 tabs, 5 Refill(s), eRx: [facility] #[id number], TAKE ONE TABLET BY MOUTH TWICE A [...] # 90 tabs, 1 Refill(s), eRx: [facility] #[id number], TAKE ONE TABLET BY MOUTH DAILY Start Date: 02/27/15 Status: Ordered Results No data available for this section Immunizations Vaccine Date Refusal Reason influenza virus vaccine, inactivated1 03/01/14 influenza virus vaccine, live 03/02/13 1Result Comment: [03/08/2014] see scanned doc. Procedures Procedure Date Related Diagnosis Body Site Colonoscopy1 2011 Hysterectomy1989 Excision of basal cell carcinoma 25562 C-Scope W/2 Adenomatous 2TAH-BSO Fro Endometriosis and Ovarian Cysts Social History Social History Type Response Smoking Status Never smoker Assessment and Plan No data available for this section
--- OUTSIDE RECORDS SUMMARY | 2016-08-08 06:03 | XMS REPORT | Referral Summary ---
Author Organization Unknown Address Unknown Phone Unavailable Care Team Providers Care Frog Or Oyster Farmworker Name Role Phone Ayesha Serna Primary Care Physician [phone] Encounter VC Date(s): 06/20/14 - 06/20/14 [facility] [place] [address] [place] [address] Discharge Diagnosis: Asthmatic bronchitis Discharge Disposition: Home or Self Care Attending Physician: Alisson Serna MD Admitting Physician: Alisson Serna MD Vital Signs Most recent to 1 oldest [Reference Range]: Temperature Tympanic 36.7 degC [36.6-38.1 degC] (06/20/14 5:12 PM) Peripheral Pulse 66 bpm Rate [60-100 bpm] (06/20/14 5:12 PM) Blood Pressure 132/88 mmHg [90-140/60-90 mmHg] (06/20/14 5:12 PM) Most recent to 1 oldest [Reference Range]: SpO2 96 % (06/20/14 5:12 PM) Problem List Condition Effective Dates Status [...] # 45 tabs, 2 Refill(s ), eRx: [facility] #[id number], TAKE ONE-HALF TABLET BY MOUTH EVERY DAY Special Instructions: TAKE ONE-HALF TABLET BY MOUTH EVERY DAY Start Date: 04/28/14 Status: Ordered enalapril 5 mg oral tablet 1 tabs, Oral, Daily, # 30 tabs, 0 Refill(s) Start Date: 06/20/14 Status: Ordered Glucometer Lancets (DME) DME Item Lancets, Ultra Thin - Use to check blood sugars 3-4 times a day, Supply Special Instructions: Lancets, Ultra Thin - Use to check blood sugars 3-4 times a day Start Date: 03/03/14 Status: Ordered Lasix 40 mg oral tablet 1 tabs, Oral, Daily, # 90 tabs, 1 Refill(s) Start Date: 02/28/14 Status: Ordered metFORMIN 500 mg oral tablet See Instructions, TAKE ONE TABLET BY MOUTH FOUR TIMES A DAY, # 120 tabs, 2 Refill(s), eRx: [facility] #[id number], TAKE ONE TABLET BY MOUTH FOUR TIMES A DAY Special Instructions: TAKE ONE TABLET BY MOUTH FOUR TIMES A DAY Start Date: 04/11/14 Status: Ordered niacin 750 mg oral tablet, extended release 2 tabs, Oral, Daily Start Date: 03/03/14 Status: Ordered potassium chloride 10 mEq oral capsule, extended release See Instructions, TAKE ONE CAPSULE BY MOUTH DAILY, # 90 unknown unit, 2 Refill(s ), eRx: [facility] #[id number], TAKE ONE CAPSULE BY MOUTH DAILY Special Instructions: TAKE ONE CAPSULE BY MOUTH DAILY Start Date: 04/21/14 Status: Ordered primidone 10 mg, Oral, BID, 10 mg/5mg, 0 Refill(s) Special Instructions: 10 mg/5mg Start Date: 03/29/14 Status: Ordered Tessalon 200 mg oral capsule 1 caps, Oral, TID, as needed for cough, X 10 days, # 30 caps, 0 Refill(s), Pharmacy: [facility] #[id number], 1 caps Oral TID,x10 days,PRN:as needed for cough Start Date: 06/20/14 Stop Date: 06/30/14 Status: Ordered Vasotec 10 mg oral tablet 1 tabs, Oral, Daily, # 90 tabs, 1 Refill(s) Start Date: 02/28/14 Status: Ordered Zetia 10 mg oral tablet See Instructions, TAKE ONE TABLET BY MOUTH DAILY, # 90 tabs, 2 Refill(s), eRx: [facility] #[id number], TAKE ONE TABLET BY MOUTH DAILY Special Instructions: TAKE ONE TABLET BY MOUTH DAILY Start Date: 05/09/14 Status: Ordered Zithromax TRI-TOMY 500 mg oral tablet 1 tabs, Oral, Daily, # 3 tabs, 0 Refill(s), Pharmacy: [facility] #[id number], 1 tabs Oral Daily Start Date: 06/20/14 Stop Date: 06/23/14 Status: Ordered Results No data available for this section Immunizations Vaccine Date Refusal Reason influenza virus vaccine, inactivated1 03/01/14 influenza virus vaccine, live 03/02/13 1Result Comment: [03/08/2014] see scanned doc. Procedures Procedure Date Related Diagnosis Body Site Colonoscopy1 2011 Hysterectomy2 1989 Excision of basal cell carcinoma 52006 C-Scope W/2 Adenomatous 2TAH-BSO Fro Endometriosis and Ovarian Cysts Social History Social History Type Response Smoking Status Never smoker Assessment and Plan Extracted from: Title: Ambulatory Patient Education Author: Alisson Serna MD Date: 06/20/14 Family Medicine Bronchospasm, Adult Bronchospasm means that there is a spasm or tightening of the airways going into the lungs. Because the airways go into a spasm and get smaller it makes breathing more difficult. For reasons not completely known, workings (functions ) of the airways designed to protect the lungs become over active. This causes the airways to become more sensitive to: Infection. Weather. Exercise. Irritants. Things that cause allergic reactions or allergies (allergens ). Frequent coughing or respiratory episodes should be checked for the cause. This condition may be made worse by exercise. CAUSES Inflammation is often the cause of this condition. Allergy, viral respiratory infections, or irritants in the air often cause this problem. Allergic reactions produce immediate and delayed responses. Late reactions may produce more serious inflammation. This may lead to increased reactivity of the airways. Sometimes this is inherited. Some common triggers are: Allergies. Infection commonly triggers attacks. Antibiotics are not helpful for viral infections and usually do not help with attacks of bronchospasm. Exercise (running, etc.) can trigger an attack. Proper pre-exercise medications help most individuals participate in sports. Swimming is the least likely sport to cause problems. Irritants (for example, pollution, cigarette smoke, strong odors, aerosol sprays, paint fumes, etc.) may trigger attacks. You cannot smoke and do not allow smoking in your home. This is absolutely necessary. Show this instruction to mates, relatives and significant others that may not agree with you. Weather changes may cause lung problems but moving around trying to find an ideal climate does not seem to be overly helpful. Winds increase molds and pollens in the air. Rain refreshes the air by washing irritants out. Cold air may cause irritation. Emotional problems do not cause lung problems but can trigger attacks. SYMPTOMS Wheezing is the most common symptom. Frequent coughing (with or without exercise and or crying) and repeated respiratory infections are all early warning signs of bronchospasm. Chest tightness and shortness of breath are other symptoms. DIAGNOSIS Early hidden bronchospasm may go for long periods of time without being detected. This is especially true if wheezing cannot be detected by your caregiver. Lung (pulmonary ) function studies may help with diagnosis in these cases. HOME CARE INSTRUCTIONS It is necessary to remain calm during an attack. Try to relax and breathe more slowly. During this time medications may be given. If any breathing problems seem to be getting worse and are unresponsive to treatment seek immediate medical care. If you have severe breathing difficulty or have had a life threatening attack it is probably a good idea for you to learn how to give adrenaline (epi- pen) or use an anaphylaxis kit. Your caregiver can help you with this. These are the same kits carried by people who have severe allergic reactions. This is especially important if you do not have readily accessible medical care. With any severe breathing problems where epinephrine (adrenaline) has been given at home call 911 immediately as the delayed reaction may be even more severe. SEEK MEDICAL CARE IF: There is wheezing and shortness of breath, even if medications are given to prevent attacks. An oral temperature above 102 F (38.9 C) develops. There are muscle aches, chest pain, or thickening of sputum. The sputum changes from clear or white to yellow, green, carey, or bloody. There are problems that may be related to the medicine you are given, such as a rash, itching, swelling, or trouble breathing. SEEK IMMEDIATE MEDICAL CARE IF: The usual medicines do not stop your wheezing, or there is increased coughing. You have increased difficulty breathing. MAKE SURE YOU: Understand these instructions. Will watch your condition. Will get help right away if you are not doing well or get worse. Document Released: 04/30/2004 Document Revised: 07/20/2012 Document Reviewed: [facility] Patient Information 2014 [employer] [facility]. No follow up information was provided. Extracted from: Title: Office Visit Note Author: Alisson Serna MD Date: 06/20/14 Assessment/Plan Asthmatic bronchitis Orders: azithromycin, 1 tabs, Oral, Daily, # 3 tabs, 0 Refill(s), Pharmacy: [facility] #[id number], 1 tabs Oral Daily benzonatate, 1 caps, Oral, TID, as needed for cough, X 10 days, # 30 caps, 0 Refill(s), Pharmacy: [facility] #[id number], 1 caps Oral TID,x10 days,PRN:as needed for cough
--- OUTSIDE RECORDS SUMMARY | 2016-08-08 06:03 | XMS REPORT | Referral Summary ---
Author Author [facility] Organization [facility] Address Unknown Phone Unavailable Care Team Providers Care Burglar Alarm Operator Name Role Phone Levi Rwoe Primary Care Physician [phone] Encounter VC Date(s): 12/19/14 - 12/19/14 [facility] [address] [place], [place] [address] Discharge Diagnosis: Atrial fibrillation Discharge Disposition: 01-Home or Self Care Attending Physician: Caron Short MD Admitting Physician: Caron Short MD Referring Physician: Levi Rowe DO Vital Signs Most recent to 1 oldest [Reference Range]: Peripheral Pulse 70 bpm Rate [60-100 bpm] (12/19/14 1:41 PM) Blood Pressure 108/68 mmHg [90-140/60-90 mmHg] (12/19/14 1:41 PM) Problem List Condition Effective Dates Status [...] Daily, # 90 tabs, 0 Refill(s), Pharmacy: [facility] # [id number], 1 tabs Oral Daily Start Date: 05/24/15 Status: Ordered Glucometer Lancets (DME) DME Item Lancets, Ultra Thin - Use to check blood sugars 3-4 times a day, Supply Start Date: 03/03/14 Status: Ordered glyBURIDE 5 mg oral tablet See Instructions, TAKE ONE TABLET BY MOUTH DAILY, # 30 tabs, 1 Refill(s), eRx: [facility] #[id number], TAKE ONE TABLET BY MOUTH DAILY Start Date: 06/27/15 Status: Ordered Janumet XR 50 mg-1000 mg oral tablet, extended release 2 tabs, Oral, qPM, # 180 tabs, 3 Refill(s), Pharmacy: [facility] #[id number] Start Date: 12/16/14 Status: Ordered potassium chloride 10 mEq oral capsule, extended release See Instructions, TAKE ONE CAPSULE BY MOUTH DAILY, # 90 unknown unit, 2 Refill(s ), eRx: [facility] #[id number], TAKE ONE CAPSULE BY MOUTH DAILY Start Date: 01/23/15 Status: Ordered primidone 50 mg oral tablet 50 mg 1 tabs, Oral, TID, # 90 tabs, 0 Refill(s) Start Date: 06/29/15 Status: Ordered sotalol 120 mg oral tablet See Instructions, TAKE ONE TABLET BY MOUTH TWICE A DAY, # 60 tabs, 4 Refill(s), eRx: [facility] #[id number], TAKE ONE TABLET BY MOUTH TWICE A [...] EVENING WITH EVENING MEAL, # 30 tabs, 3 Refill(s), eRx: [facility] #[id number], TAKE ONE TABLET BY MOUTH EVERY EVENING WITH EVENING MEAL Start Date: 06/30/15 Status: Ordered Zetia 10 mg oral tablet See Instructions, TAKE ONE TABLET BY MOUTH DAILY, # 90 tabs, 1 Refill(s), eRx: [facility] #[id number], TAKE ONE TABLET BY MOUTH DAILY Start Date: 02/27/15 Status: Ordered Results No data available for this section Immunizations Vaccine Date Refusal Reason influenza virus vaccine, inactivated1 03/01/14 influenza virus vaccine, live 03/02/13 1Result Comment: [03/08/2014] see scanned doc. Procedures Procedure Date Related Diagnosis Body Site Colonoscopy1 2011 Hysterectomy2 1989 Excision of basal cell carcinoma 09034 C-Scope W/2 Adenomatous 2TAH-BSO Fro Endometriosis and Ovarian Cysts Social History Social History Type Response Smoking Status Never smoker Assessment and Plan Extracted from: Title: Office Visit Note Author: Caron Short MD Date: 12/19/14 Assessment/Plan 1.Atrial fibrillation Referrals to Other Providers Referred by: Caron Short MD
--- OUTSIDE RECORDS SUMMARY | 2016-08-08 06:03 | XMS REPORT | Referral Summary ---
Author Author [facility] Organization [facility] Address Unknown Phone Unavailable Care Team Providers Care Radiology Assistant Name Role Phone Levi Rowe Primary Care Physician [phone] Encounter VC Date(s): 09/14/14 - 09/14/14 [facility] [address] [place], [place] [address] Discharge Disposition: 01-Home or Self Care [...] Refill(s), eRx: [facility] #[id number], TAKE ONE TABLET BY MOUTH DAILY Start Date: 03/20/15 Status: Ordered Janumet XR 50 mg-1000 mg oral tablet, extended release 2 tabs, Oral, qPM, # 180 tabs, 3 Refill(s), Pharmacy: [facility] #[id number] Start Date: 12/16/14 Status: Ordered Lasix 40 mg oral tablet 1 tabs, Oral, Daily, # 90 tabs, 2 Refill(s), Pharmacy: [id number], 1 tabs Oral Daily Start Date: 08/19/14 Status: Ordered potassium chloride 10 mEq oral capsule, extended release See Instructions, TAKE ONE CAPSULE BY MOUTH DAILY, # 90 unknown unit, 2 Refill(s ), eRx: [facility] #[id number], TAKE ONE CAPSULE BY MOUTH DAILY Start Date: 01/23/15 Status: Ordered primidone 50 mg, Oral, BID, 0 Refill(s) Start Date: 03/29/14 Status: Ordered sotalol 120 mg oral tablet See Instructions, TAKE ONE TABLET BY MOUTH TWICE A DAY, # 60 tabs, 5 Refill(s), eRx: [facility] #[id number], TAKE ONE TABLET BY MOUTH TWICE A [...] DAILY, # 90 tabs, 1 Refill(s), eRx: [facility] #[id number], TAKE ONE TABLET BY MOUTH DAILY Start Date: 02/27/15 Status: Ordered Results No data available for this section Immunizations Vaccine Date Refusal Reason influenza virus vaccine, inactivated1 03/01/14 influenza virus vaccine, live 03/02/13 1Result Comment: [03/08/2014] see scanned doc. Procedures Procedure Date Related Diagnosis Body Site Colonoscopy1 2011 Hysterectomy2 1989 Excision of basal cell carcinoma 74267 C-Scope W/2 Adenomatous 2TAH-BSO Fro Endometriosis and Ovarian Cysts Social History Social History Type Response Smoking Status Never smoker Assessment and Plan No data available for this section
--- OUTSIDE RECORDS SUMMARY | 2016-08-08 06:03 | XMS REPORT | Continuity of Care Document ---
Author Author Xin Gamez MA [facility] Address Unknown Phone Unavailable Care Team Providers Care Service Delivery Supervisor Name Role Phone Alisson Serna ASHELY Unavailable Payers Payer name Insurance type Covered libertarian ID Authorization(s) Unknown Problems Condition Effective Dates (start - stop) Clinical Status Diabetes Mellitus Type 2, Uncomplicated - *Chronic Hypertension, Unspecified - *Chronic Other and unspecified hyperlipidemia - *Chronic Tremor - *Chronic Diabetes Mellitus Type 2, Uncomplicated - *Chronic Other and unspecified hyperlipidemia - *Chronic Need for unspecified prophylactic measure - *Acute Hypertension, Benign - *Chronic Tachycardia - *Chronic Personal history of other malignant neoplasm of skin - *Chronic Hemangioma of unspecified site - *Chronic Other seborrheic keratosis - *Chronic 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 Inflamed seborrheic keratosis - *Symptomatic Personal history of other malignant neoplasm of skin - *Resolved Hemangioma of unspecified site - Asymptomatic Inflamed seborrheic keratosis - *Symptomatic Other seborrheic keratosis - Asymptomatic 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 PURE HYPERCHOLESTEROLEM - HYPERTENSION NOS - TACHYCARDIA NOS - DMII WO CMP NT ST [facility] - Back pain - *Acute Dysrhythmia - *Chronic Family History Family Member Diagnosis Age At Onset Status Unknown Social History Social History Element Description Quantity Unknown Allergies, Adverse Reactions, Alerts Substance Reaction Severity Status CODEINE Unknown PENICILLINS Unknown SULFANILAMIDE Unknown LATEX Unknown Medications Medication Instructions Dosage Effective Dates (start - stop) Status metformin 500 mg tablet take 1 tablet (500MG) by oral route 2 times every day 500 MG - No Longer Active Lancets,Ultra Thin use to check blood sugars 3-4 times a day Dx:250.0 - Active Zetia 10 mg tablet Take 1 tablet by mouth every day. - Active aspirin 325 mg tablet take 1 Tablet (325MG) by oral route every day 30 minutes prior to niaspan 325 MG - Active potassium chloride ER 10 mEq capsule,extended release Take 1 capsule by mouth every day. - Active Niaspan 500 mg tablet,extended release TAKE 3 TABS BY MOUTH EVERY DAY - Active Zebeta 5 mg tablet Take 0.5 tablets by mouth every day. - Active Vasotec 10 mg tablet take 1 tablet (10MG) by oral route every day 10 MG - Active Lasix 40 mg tablet Take 1 tablet by mouth every day. - Active metformin 500 mg tablet MAY INCREASE TO TID OR QID. - Active Immunizations Vaccine Date Status Comments Fluzone HD 0.5 completed Results Test Name Date and Time Measure Units Reference Range Abnormal Flag Comments Unknown Vital Signs Date / Time: Height Weight Pulse Rate Blood Pressure Temperature /12:01:00 72.00 in 264.00 lbs 74 /min 126/64 mm[Hg] 97.9 F Procedures Procedure Date Unknown Encounters Encounter Location Date Patient Visit [facility] Patient Visit [facility] Patient Visit [facility] Patient Visit [facility] [place] Patient Visit [facility] Patient Visit [facility] Patient [facility] Patient [facility] Patient [facility] Patient Visit [facility] E21 Derm Patient Visit [facility] E21 Derm Patient Visit Conversion Patient Visit [facility] Advance Directives Directive Effective Date Unknown
--- OUTSIDE RECORDS SUMMARY | 2016-08-08 06:03 | XMS REPORT | Referral Summary ---
Author Author [facility] [place] Organization [facility] Address Unknown Phone Unavailable Care Team Providers Care Automation Technologist Name Role Phone Levi Rowe Primary Care Physician [phone] Encounter VC Date(s): 04/26/15 - 04/26/15 [facility], [address] [place] [address]- Discharge Diagnosis: Diabetes type 2, controlled Discharge Diagnosis: Mixed hyperlipidemia Discharge Disposition: 01-Home or Self Care Attending Physician: Levi Rowe DO Admitting Physician: Levi Rowe DO Vital Signs Most recent to 1 oldest [Reference Range]: Temperature Tympanic 35.7 degC [36.6-38.1 degC] *LOW* (04/26/15 9:29 AM) Peripheral Pulse 68 bpm Rate [60-100 bpm] (04/26/15 9:29 AM) Blood Pressure 128/90 mmHg [90-140/60-90 mmHg] (04/26/15 9:29 AM) Problem List Condition Effective Dates Status [...] DAILY, # 30 tabs, 1 Refill(s), eRx: [facility] #[id number], TAKE ONE TABLET BY MOUTH DAILY Start Date: 03/20/15 Status: Ordered Janumet XR 50 mg-1000 mg oral tablet, extended release 2 tabs, Oral, qPM, # 180 tabs, 3 Refill(s), Pharmacy: [facility] #[id number] Start Date: 12/16/14 Status: Ordered Lasix 40 mg oral tablet 1 tabs, Oral, Daily, # 90 tabs, 2 Refill(s), Pharmacy: [id number], 1 tabs Oral Daily Start Date: 08/19/14 Status: Ordered potassium chloride 10 mEq oral capsule, extended release See Instructions, TAKE ONE CAPSULE BY MOUTH DAILY, # 90 unknown unit, 2 Refill(s ), eRx: [facility] #[id number], TAKE ONE CAPSULE BY MOUTH DAILY Start Date: 01/23/15 Status: Ordered primidone 50 mg, Oral, BID, 0 Refill(s) Start Date: 03/29/14 Status: Ordered sotalol 120 mg oral tablet See Instructions, TAKE ONE TABLET BY MOUTH TWICE A DAY, # 60 tabs, 5 Refill(s), eRx: [facility] #[id number], TAKE ONE TABLET BY MOUTH TWICE A [...] eRx: [facility] #[id number], TAKE ONE TABLET BY MOUTH DAILY Start Date: 02/27/15 Status: Ordered Results No data available for this section Immunizations Vaccine Date Refusal Reason influenza virus vaccine, inactivated1 03/01/14 influenza virus vaccine, live 03/02/13 1Result Comment: [03/08/2014] see scanned doc. Procedures Procedure Date Related Diagnosis Body Site Colonoscopy1 2011 Hysterectomy2 1989 Excision of basal cell carcinoma 93188 C-Scope W/2 Adenomatous 2TAH-BSO Fro Endometriosis and Ovarian Cysts Social History Social History Type Response Smoking Status Never smoker Assessment and Plan Extracted from: Title: CDM for DM and lipids Author: Levi Rowe DO Date: 04/26/15 Assessment/Plan Diabetes type 2, controlled, Type 2 diabetes mellitus without complications 1. Her blood sugars are well controlled. Her hemoglobin A1c is 5.4. 2. Continue with glyburide and Janumet as previous. 3. Recheck A1c in 6 months. If her blood sugars continue to be well controlled then we may consider stopping the glyburide and/or decreasing the dose of Janumet. Ordered: Office Visit Level 4 Est 28871 Mixed hyperlipidemia, Mixed hyperlipidemia 1. Lipid panel continue to be elevated. 2. Continue with saline as previous. 3. Healthy lifestyle changes with healthy food choices and daily exercises recommended. 4. Repeat fasting lipids in 3 months. Ordered: Office Visit Level 4 Est 69595
--- OUTSIDE RECORDS SUMMARY | 2016-08-08 06:03 | XMS REPORT | Referral Summary ---
Author Author [facility], [facility] Organization [facility] Address Unknown Phone Unavailable Care Team Providers Care State Epidemiologist Name Role Phone Levi Rowe Primary Care Physician [phone] Encounter VC Date(s): 12/16/14 - 12/16/14 [facility] [address] [place] [address]- Discharge Diagnosis: Type 2 diabetes Discharge Diagnosis: Tachycardia, unspecified Discharge Diagnosis: Tremors Discharge Disposition: 01-Home or Self Care Attending Physician: Levi Rowe DO Admitting Physician: Levi Rowe DO Vital Signs Most recent to 1 oldest [Reference Range]: Temperature Tympanic 36.8 degC [36.6-38.1 degC] (12/16/14 9:45 AM) Apical Heart Rate 71 bpm [60-100 bpm] (12/16/14 9:45 AM) Blood Pressure 108/66 mmHg [90-140/60-90 mmHg] (12/16/14 9:45 AM) SpO2 97 % (12/16/14 9:45 AM) Problem List Condition Effective Dates Status [...] Daily, # 90 tabs, 0 Refill(s), Pharmacy: [facility] # [id number], 1 tabs Oral Daily Start Date: 05/24/15 Status: Ordered Glucometer Lancets (DME) DME Item Lancets, Ultra Thin - Use to check blood sugars 3-4 times a day, Supply Start Date: 03/03/14 Status: Ordered glyBURIDE 5 mg oral tablet See Instructions, TAKE ONE TABLET BY MOUTH DAILY, # 30 tabs, 1 Refill(s), eRx: [facility] #[id number], TAKE ONE TABLET BY MOUTH DAILY Start Date: 06/27/15 Status: Ordered Janumet XR 50 mg-1000 mg oral tablet, extended release 2 tabs, Oral, qPM, # 180 tabs, 3 Refill(s), Pharmacy: [facility] #[id number] Start Date: 12/16/14 Status: Ordered Lasix 40 mg oral tablet 1 tabs, Oral, Daily, # 90 tabs, 2 Refill(s), Pharmacy: [id number], 1 tabs Oral Daily Start Date: 08/19/14 Status: Ordered potassium chloride 10 mEq oral capsule, extended release See Instructions, TAKE ONE CAPSULE BY MOUTH DAILY, # 90 unknown unit, 2 Refill(s ), eRx: [facility] #[id number], TAKE ONE CAPSULE BY MOUTH DAILY Start Date: 01/23/15 Status: Ordered primidone 50 mg, Oral, BID, 0 Refill(s) Start Date: 03/29/14 Status: Ordered sotalol 120 mg oral tablet See Instructions, TAKE ONE TABLET BY MOUTH TWICE A DAY, # 60 tabs, 4 Refill(s), eRx: [facility] #[id number], TAKE ONE TABLET BY MOUTH TWICE A [...] qPM, # 30 tabs, 0 Refill(s), Pharmacy: [facility] # [id number], 1 tabs Oral qPM Start Date: 06/12/15 Status: Ordered Xarelto 20 mg oral tablet 20 mg 1 tabs, Oral, With Lunch, 0 Refill(s) Start Date: 10/18/14 Status: Ordered Zetia 10 mg oral tablet See Instructions, TAKE ONE TABLET BY MOUTH DAILY, # 90 tabs, 1 Refill(s), eRx: [facility] #[id number], TAKE ONE TABLET BY MOUTH DAILY Start Date: 02/27/15 Status: Ordered Results No data available for this section Immunizations Vaccine Date Refusal Reason influenza virus vaccine, inactivated1 03/01/14 influenza virus vaccine, live 03/02/13 1Result Comment: [03/08/2014] see scanned doc. Procedures Procedure Date Related Diagnosis Body Site Colonoscopy1 2011 Hysterectomy2 1989 Excision of basal cell carcinoma 71609 C-Scope W/2 Adenomatous 2TAH-BSO Fro Endometriosis and Ovarian Cysts Social History Social History Type Response Smoking Status Never smoker Assessment and Plan Extracted from: Title: Office Visit Note Author: Levi Rowe DO Date: 12/16/14 Assessment/Plan Tachycardia, unspecified 1. Her heart rate is well controlled at this time and on auscultation sounds to be in sinus rhythm. 2. We will request records from her recent ER evaluation in [place] and determine if we need to send her back to Dr. Short. 3. Continue with sotalol 120 mg twice a day. 4. If she is having recurrent palpitation then she's to notify me or come in for evaluation. 5. We will send Dr. Short a note and see if he thinks the patient should be reevaluated in his clinic. Ordered: Office Visit Level 4 Est 25767 Type 2 diabetes 1. Will increase Janumet extended release to 100/2000 daily. 2. Continue checking blood sugars 3 times per week and send those in for review. 3. Follow-up in a month for reevaluation. If she continues to have elevated blood sugars then we may consider basal insulin. Ordered: Office Visit Level 4 Est 07166 Orders: sitaGLIPtin-metFORMIN, 2 tabs, Oral, qPM, # 180 tabs, 3 Refill(s), Pharmacy: [facility] #[id number]
--- OUTSIDE RECORDS SUMMARY | 2016-08-08 06:03 | XMS REPORT | Referral Summary ---
Author Author [facility], [facility] Organization [facility] Address Unknown Phone Unavailable Care Team Providers Care Racebook Writer Name Role Phone Levi Rowe Primary Care Physician [phone] Encounter VC Date(s): 01/20/15 - 01/20/15 [facility] [place] [address]- Discharge Diagnosis: Solar keratosis Discharge Diagnosis: Poorly controlled type 2 diabetes mellitus Discharge Disposition: 01-Home or Self Care Attending Physician: Levi Rowe DO Admitting Physician: Levi Rowe DO Vital Signs Most recent to 1 oldest [Reference Range]: Temperature Tympanic 36.9 degC [36.6-38.1 degC] (01/20/15 9:03 AM) Peripheral Pulse 68 bpm Rate [60-100 bpm] (01/20/15 9:03 AM) Blood Pressure 114/76 mmHg [90-140/60-90 mmHg] (01/20/15 9:03 AM) SpO2 97 % (01/20/15 9:03 AM) Problem List Condition Effective Dates Status [...] Daily, # 90 tabs, 0 Refill(s), Pharmacy: [facility] # [id number], 1 tabs Oral Daily Start Date: 05/24/15 Status: Ordered Glucometer Lancets (DME) DME Item Lancets, Ultra Thin - Use to check blood sugars 3-4 times a day, Supply Start Date: 03/03/14 Status: Ordered glyBURIDE 5 mg oral tablet See Instructions, TAKE ONE TABLET BY MOUTH DAILY, # 30 tabs, 1 Refill(s), eRx: [facility] #[id number], TAKE ONE TABLET BY MOUTH DAILY Start Date: 06/27/15 Status: Ordered Janumet XR 50 mg-1000 mg oral tablet, extended release 2 tabs, Oral, qPM, # 180 tabs, 3 Refill(s), Pharmacy: [facility] #[id number] Start Date: 12/16/14 Status: Ordered potassium chloride 10 mEq oral capsule, extended release See Instructions, TAKE ONE CAPSULE BY MOUTH DAILY, # 90 unknown unit, 2 Refill(s ), eRx: [facility] #[id number], TAKE ONE CAPSULE BY MOUTH DAILY Start Date: 01/23/15 Status: Ordered primidone 50 mg oral tablet 50 mg 1 tabs, Oral, TID, # 90 tabs, 0 Refill(s) Start Date: 06/29/15 Status: Ordered sotalol 120 mg oral tablet See Instructions, TAKE ONE TABLET BY MOUTH TWICE A DAY, # 60 tabs, 4 Refill(s), eRx: [facility] #[id number], TAKE ONE TABLET BY MOUTH TWICE A [...] MEAL, # 30 tabs, 3 Refill(s), eRx: [facility] #[id number], TAKE ONE TABLET BY MOUTH EVERY EVENING WITH EVENING MEAL Start Date: 06/30/15 Status: Ordered Zetia 10 mg oral tablet See Instructions, TAKE ONE TABLET BY MOUTH DAILY, # 90 tabs, 1 Refill(s), eRx: [facility] #[id number], TAKE ONE TABLET BY MOUTH DAILY Start Date: 02/27/15 Status: Ordered Results No data available for this section Immunizations Vaccine Date Refusal Reason influenza virus vaccine, inactivated1 03/01/14 influenza virus vaccine, live 03/02/13 1Result Comment: [03/08/2014] see scanned doc. Procedures Procedure Date Related Diagnosis Body Site Colonoscopy1 2011 Hysterectomy2 1989 Excision of basal cell carcinoma 99829 C-Scope W/2 Adenomatous 2TAH-BSO Fro Endometriosis and Ovarian Cysts Social History Social History Type Response Smoking Status Never smoker Assessment and Plan Extracted from: Title: Office Visit Note Author: Levi Rowe DO Date: 01/20/15 Assessment/Plan Poorly controlled type 2 diabetes mellitus Pathophysiology of this presentation, and differential diagnosis, discussed in detail with the patient. All questions were answered. 1. Continue with Janumet , 2 tablets daily. 2. We'll try her glyburide 5 mg daily. 3. Recommended checking her blood sugars 3 days per week and sending those blood sugars and for review. 4. Follow-up in 3 months for diabetes management, she is to have lab work that a day or 2 before her next appointment to include hemoglobin A1c, complete metabolic profile, fasting lipids and urine microalbumin. Ordered: glyBURIDE, 5 mg 1 tabs, Oral, Daily, # 30 tabs, 0 Refill(s), Pharmacy: [facility] #[id number], 1 tabs Oral Daily Office Visit Level 4 Est 58063 Solar keratosis 1. Patient advised these lesions are benign in nature. Minimizing sun exposure or skin irritation recommended. 2. If she is interested in treatment then we can send her to dermatology for further evaluation and recommendations. Ordered: Office Visit Level 4 Est 01251
--- OUTSIDE RECORDS SUMMARY | 2016-08-08 06:03 | XMS REPORT | Referral Summary ---
Author Author [facility] Organization [facility] Address Unknown Phone Unavailable Care Team Providers Care Data Entry Supervisor Name Role Phone Levi Rowe Primary Care Physician [phone] Encounter Date(s): 10/16/14 - 10/18/14 [facility] [address] [place] [address] Discharge Diagnosis: Unspecified essential hypertension Discharge Diagnosis: Type 2 diabetes Discharge Diagnosis: Hyperlipidemia Final: ATRIAL FIBRILLATION Final: PAROXYSMAL VENTRICULAR TACHYCARDIA Final: OTHER CHRONIC PULMONARY HEART DISEASES Final: DISORDERS OF MAGNESIUM METABOLISM Final: OTHER AND UNSPECIFIED HYPERLIPIDEMIA Final: OBESITY, UNSPECIFIED Final: Diabetes mellitus without mention of complication, type II or unspecified type, not stated as uncontrolled Final: PURE HYPERCHOLESTEROLEMIA Final: UNSPECIFIED ESSENTIAL HYPERTENSION Final: OSTEOARTHROSIS, LOCALIZED, NOT SPECIFIED WHETHER PRIMARY OR SECONDARY, INVOLVING LOWER LEG Final: Long-Term (Current) Use of Anticoagulants Discharge Disposition: 01-Home or Self Care Attending Physician: Isaac Lubin DO Admitting Physician: Paris Street MD Vital Signs Most recent to 1 oldest [Reference Range]: Temperature Oral 36.8 degC [35.8-37.3 degC] (10/18/14 11:43 AM) Peripheral Pulse 58 bpm Rate [60-100 bpm] *LOW* (10/18/14 11:43 AM) Heart Rate Monitored 64 bpm [60-100 bpm] (10/18/14 8:35 AM) Respiratory Rate 18 br/min [14-20 br/min] (10/18/14 8:35 AM) Blood Pressure 109/62 mmHg [90-140/60-90 mmHg] (10/18/14 11:43 AM) Mean Arterial 80 mmHg Pressure, Cuff (10/16/14 6:00 PM) SpO2 96 % (10/18/14 11:43 AM) Problem List Condition Effective Dates Status [...] DAILY, # 30 tabs, 1 Refill(s), eRx: [facility] #[id number], TAKE ONE TABLET BY MOUTH DAILY Start Date: 03/20/15 Status: Ordered Janumet XR 50 mg-1000 mg oral tablet, extended release 2 tabs, Oral, qPM, # 180 tabs, 3 Refill(s), Pharmacy: [facility] #[id number] Start Date: 12/16/14 Status: Ordered Lasix 40 mg oral tablet 1 tabs, Oral, Daily, # 90 tabs, 2 Refill(s), Pharmacy: [id number], 1 tabs Oral Daily Start Date: 08/19/14 Status: Ordered potassium chloride 10 mEq oral capsule, extended release See Instructions, TAKE ONE CAPSULE BY MOUTH DAILY, # 90 unknown unit, 2 Refill(s ), eRx: [facility] #[id number], TAKE ONE CAPSULE BY MOUTH DAILY Start Date: 01/23/15 Status: Ordered primidone 50 mg, Oral, BID, 0 Refill(s) Start Date: 03/29/14 Status: Ordered sotalol 120 mg oral tablet See Instructions, TAKE ONE TABLET BY MOUTH TWICE A DAY, # 60 tabs, 5 Refill(s), eRx: [facility] #[id number], TAKE ONE TABLET BY MOUTH TWICE A [...] DAILY, # 90 tabs, 1 Refill(s), eRx: [facility] #[id number], TAKE ONE TABLET BY MOUTH DAILY Start Date: 02/27/15 Status: Ordered Results Hematology Most recent to 1 oldest [Reference Range]: WBC [4.8-10.8 4.5 10*3/uL 10*3/uL] *LOW* (10/18/14 5:31 AM) RBC [4.00-5.20 4.15 10*6/uL 10*6/uL] (10/18/14 5:31 AM) Hgb [12.0-16.0 12.3 gm/dL gm/dL] (10/18/14 5:31 AM) Hct [37.0-47.0 %] 37.0 % (10/18/14 5:31 AM) MCV [82.0-99.0 fL] 89.2 fL (10/18/14 5:31 AM) MCH [27.0-32.0 pg] 29.6 pg (10/18/14 5:31 AM) MCHC [32.0-36.0 33.2 gm/dL gm/dL] (10/18/14 5:31 AM) RDW [11.5-14.5 %] 14.0 % (10/18/14:31 AM) Platelet [150-400 165 10*3/uL 10*3/uL] (10/18/14 5:31 AM) MPV [9.4-12.4 fL] 9.7 fL (10/18/14 5:31 AM) Immature 0.2 % Granulocytes (10/17/14:11 AM) [0.0-1.0 %] Neutrophils [51-75 47 % %] *LOW* (10/17/14:11 AM) Lymphocytes [20-46 42 % %] (10/17/14: AM) Monocytes [4-11 %] 9 % (10/17/14:11 AM) Eosinophils [0-4 %] 1 % (10/17/14 5: AM) Basophils [0-2 %] 0 % (10/17/14 5:11 AM) Neutro Absolute 3.01 10*3 [1.90-7.00 10*3] (10/17/14 5:11 AM) Lymph Absolute 2.71 10*3 [0.80-3.30 10*3] (10/17/14 5:11 AM) [place] Absolute 0.56 10*3 [0.30-1.00 10*3] (10/17/14 5:11 AM) Eos Absolute 0.08 10*3 [0.00-0.50 10*3] (10/17/14 5:11 AM) Baso Absolute 0.02 10*3 [0.00-0.20 10*3] (10/17/14 5:11 AM) Nucleated RBC 0.0 /100 WBC Automated [0 /100 (10/17/14 5:11 AM) WBC] Coagulation Most recent to 1 oldest [Reference Range]: INR [0.9-1.2] 1.0 (10/17/14 1:37 AM) PTT [25.0-35.0] 94.6 *HI* (10/18/14 5:31 AM) Chemistry Most recent to 1 oldest [Reference Range]: Sodium Lvl [136-144 138 mEq/L mEq/L] (10/18/1431 AM) Potassium Lvl 4.2 mEq/L [3.6-5.1 mEq/L] (10/18/1431 AM) Chloride [99-109 108 mEq/L mEq/L] (10/18/1431 AM) CO2 [22-32 mEq/L] 23 mEq/L (10/18/1431 AM) AGAP [3-20] 7 (10/18/14 AM) BUN [4-20 mg/dL] 11 mg/dL (10/18/1431 AM) Glucose Lvl [70-100 133 mg/dL mg/dL] *HI* (10/18/1431 AM) Creatinine Lvl 0.56 mg/dL [0.44-1.03 mg/dL] (10/18/1431 AM) eGFR [>60] >60 1 (10/18/1431 AM) Calcium Lvl 8.8 mg/dL [8.6-10.0 mg/dL] (10/18/1431 AM) Albumin Lvl [3.5-4.8 3.9 gm/dL gm/dL] (10/16/14 5:00 PM) Total Protein 7.3 gm/dL [6.1-7.9 gm/dL] (10/16/14 5:00 PM) Globulin [1.9-4.3 3.4 gm/dL gm/dL] (10/16/14 5:00 PM) ALT [14-54 U/L] 68 U/L *HI* (10/16/14 5:00 PM) AST [15-41 U/L] 69 U/L *HI* (10/16/14 5:00 PM) Alk Phos [26-104 54 U/L U/L] (10/16/14 5:00 PM) Bili Total [0.2-1.2 0.7 mg/dL 2 mg/dL] (10/16/14 5:00 PM) Magnesium Lvl 2.2 mg/dL [1.8-2.5 mg/dL] (10/17/14 5:11 AM) Phosphorus [2.4-4.7 3.4 mg/dL 3 mg/dL] (10/17/14 5:11 AM) Troponin [<0.06 0.06 ng/mL 4 ng/mL] *CRIT* (10/17/14 5:11 AM) Blood Glucose, 101 mg/dL Capillary [70-100 *HI* mg/dL] (10/18/14 11:42 AM) Chol [0-200 mg/dL] 137 mg/dL (10/17/14 5:11 AM) Trig [0-150 mg/dL] 87 mg/dL (10/17/14 5:11 AM) HDL [>40 mg/dL] 42 mg/dL (10/17/14 5:11 AM) LDL [0-100 mg/dL] 78 mg/dL (10/17/14 5:11 AM) VLDL Cholesterol 17 mg/dL [0-30 mg/dL] (10/17/14 5:11 AM) Cardiac Risk 3.3 [0.0-5.0] (10/17/14 5:11 AM) TSH [0.35-5.50] 2.84 (10/16/14 5:00 PM) 1Result Comment: Multiply eGFR results by 1.21 for race. 2Result Comment: Naproxen, specifically the metabolite O-desmethylnaproxen, may cause spurious elevation in Total Bilirubin levels. 3Result Comment: High dosages of liposomal Amphotericin B (AmBisome) therapy or other drug preparations that use a liposomal envelope to facilitate drug delivery may cause falsely elevated results for phosphorus. 4Result Comment: Critical value called, and read-back verified. Called to GAY AJ RN. 10/17/2014 05:58 Immunizations Vaccine Date Refusal Reason influenza virus vaccine, inactivated1 03/01/14 influenza virus vaccine, live 03/02/13 1Result Comment: [03/08/2014] see scanned doc. Procedures Procedure Date Related Diagnosis Body Site Colonoscopy1 2011 Hysterectomy2 1989 Excision of basal cell carcinoma 40580 C-Scope W/2 Adenomatous 2TAH-BSO Fro Endometriosis and Ovarian Cysts Social History Social History Type Response Smoking Status Never smoker Assessment and Plan No data available for this section
--- OUTSIDE RECORDS SUMMARY | 2016-08-08 06:04 | XMS REPORT | Referral Summary ---
Author Author [facility], [facility] Organization [facility] Address Unknown Phone Unavailable Care Team Providers Care Leaf Conditioner Name Role Phone Levi Rowe Primary Care Physician [phone] Encounter VC Date(s): 10/17/14 - 10/17/14 [facility] [address] [place], [place] [address] Discharge Disposition: 01-Home or Self [...] DAILY, # 30 tabs, 1 Refill(s), eRx: [facility] #[id number], TAKE ONE TABLET BY MOUTH DAILY Start Date: 03/20/15 Status: Ordered Janumet XR 50 mg-1000 mg oral tablet, extended release 2 tabs, Oral, qPM, # 180 tabs, 3 Refill(s), Pharmacy: [facility] #[id number] Start Date: 12/16/14 Status: Ordered Lasix 40 mg oral tablet 1 tabs, Oral, Daily, # 90 tabs, 2 Refill(s), Pharmacy: [id number], 1 tabs Oral Daily Start Date: 08/19/14 Status: Ordered potassium chloride 10 mEq oral capsule, extended release See Instructions, TAKE ONE CAPSULE BY MOUTH DAILY, # 90 unknown unit, 2 Refill(s ), eRx: [facility] #[id number], TAKE ONE CAPSULE BY MOUTH DAILY Start Date: 01/23/15 Status: Ordered primidone 50 mg, Oral, BID, 0 Refill(s) Start Date: 03/29/14 Status: Ordered sotalol 120 mg oral tablet See Instructions, TAKE ONE TABLET BY MOUTH TWICE A DAY, # 60 tabs, 5 Refill(s), eRx: [facility] #[id number], TAKE ONE TABLET BY MOUTH TWICE A [...] DAILY, # 90 tabs, 1 Refill(s), eRx: [facility] #[id number], TAKE ONE TABLET BY MOUTH DAILY Start Date: 02/27/15 Status: Ordered Results No data available for this section Immunizations Vaccine Date Refusal Reason influenza virus vaccine, inactivated1 03/01/14 influenza virus vaccine, live 03/02/13 1Result Comment: [03/08/2014] see scanned doc. Procedures Procedure Date Related Diagnosis Body Site Colonoscopy1 2011 Hysterectomy2 1989 Excision of basal cell carcinoma 72624 C-Scope W/2 Adenomatous 2TAH-BSO Fro Endometriosis and Ovarian Cysts Social History Social History Type Response Smoking Status Never smoker Assessment and Plan No data available for this section
--- OUTSIDE RECORDS SUMMARY | 2016-08-08 06:04 | XMS REPORT | Referral Summary ---
Author Organization Unknown Address Unknown Phone Unavailable Care Team Providers Care Neck Band Operator Name Role Phone Ayesha Serna Primary Care Physician [phone] Encounter VC Date(s): 08/26/14 - 08/26/14 [facility], [facility] [address] [place] [address] Discharge Diagnosis: Pre-op examination Discharge Disposition: Home or Self Care Attending Physician: Sravani Min APRN Admitting Physician: Sravani Min APRN Referring Physician: Natalio Uriostegui MD Vital Signs Most recent to 1 oldest [Reference Range]: Temperature Tympanic 36.9 degC [36.6-38.1 degC] (08/26/14 1:50 PM) Peripheral Pulse 72 bpm Rate [60-100 bpm] (08/26/14 1:50 PM) Blood Pressure 128/70 mmHg [90-140/60-90 mmHg] (08/26/14 1:50 PM) Problem List Condition Effective Dates Status [...] # 45 tabs, 2 Refill(s ), eRx: [facility] #[id number], TAKE ONE-HALF TABLET BY MOUTH EVERY DAY Special Instructions: TAKE ONE-HALF TABLET BY MOUTH EVERY DAY Start Date: 04/28/14 Status: Ordered enalapril 10 mg oral tablet 0.5 tabs, Oral, BID, # 90 tabs, 3 Refill(s), Pharmacy: [facility] 2428, 0.5 tabs Oral BID Start Date: 08/22/14 Status: Ordered Glucometer Lancets (DME) DME Item Lancets, Ultra Thin - Use to check blood sugars 3-4 times a day, Supply Special Instructions: Lancets, Ultra Thin - Use to check blood sugars 3-4 times a day Start Date: 03/03/14 Status: Ordered Lasix 40 mg oral tablet 1 tabs, Oral, Daily, # 90 tabs, 2 Refill(s), Pharmacy: [facility] 2428, 1 tabs Oral Daily Start Date: 08/19/14 Status: Ordered metFORMIN 500 mg oral tablet See Instructions, TAKE ONE TABLET BY MOUTH FOUR TIMES A DAY, # 120 tabs, 2 Refill(s), eRx: [facility] #[id number], TAKE ONE TABLET BY MOUTH FOUR TIMES A DAY Special Instructions: TAKE ONE TABLET BY MOUTH FOUR TIMES A DAY Start Date: 08/22/14 Status: Ordered niacin 750 mg oral tablet, extended release See Instructions, TAKE TWO TABLETS BY MOUTH EVERY DAY, # 180 tabs, eRx: [facility] [id number], TAKE TWO TABLETS BY MOUTH EVERY DAY Special Instructions: TAKE TWO TABLETS BY MOUTH EVERY DAY Start Date: 07/28/14 Status: Ordered potassium chloride 10 mEq oral capsule, extended release See Instructions, TAKE ONE CAPSULE BY MOUTH DAILY, # 90 unknown unit, 2 Refill(s ), eRx: [facility] #[id number], TAKE ONE CAPSULE BY MOUTH DAILY Special Instructions: TAKE ONE CAPSULE BY MOUTH DAILY Start Date: 04/21/14 Status: Ordered primidone 10 mg, Oral, BID, 10 mg/5mg, 0 Refill(s) Special Instructions: 10 mg/5mg Start Date: 03/29/14 Status: Ordered Vasotec 10 mg oral tablet 1 tabs, Oral, Daily, # 90 tabs, 1 Refill(s) Start Date: 02/28/14 Status: Ordered Zetia 10 mg oral tablet See Instructions, TAKE ONE TABLET BY MOUTH DAILY, # 90 tabs, 2 Refill(s), eRx: [facility] #[id number], TAKE ONE TABLET BY MOUTH DAILY Special Instructions: TAKE ONE TABLET BY MOUTH DAILY Start Date: 05/09/14 Status: Ordered Results Hematology Most recent to 1 oldest [Reference Range]: WBC [4.8-10.8 K/uL] 6.4 K/uL (08/26/14 2:15 PM) RBC [4.00-5.20 M/uL] 4.86 M/uL (08/26/14 2:15 PM) Hgb [12.0-16.0 14.6 gm/dL gm/dL] (08/26/14 2:15 PM) Hct [37.0-47.0 %] 42.4 % (08/26/14 2:15 PM) MCV [82.0-99.0 fL] 87.2 fL (08/26/14 2:15 PM) MCH [27.0-32.0 pg] 30.0 pg (08/26/14 2:15 PM) MCHC [32.0-36.0 34.4 gm/dL gm/dL] (08/26/14 2:15 PM) RDW [11.5-14.5 %] 13.1 % (08/26/14 2:15 PM) Platelet [150-400 176 K/uL K/uL] (08/26/14 2:15 PM) MPV [8.8-14.8 fL] 10.2 fL (08/26/14 2:15 PM) Immature 0.0 % Granulocytes (08/26/14 2:15 PM) [0.0-1.0 %] Neutrophils [51-75 53 % %] (08/26/14 2:15 PM) Lymphocytes [20-46 38 % %] (08/26/14 2:15 PM) Monocytes [4-11 %] 8 % (08/26/14 2:15 PM) Eosinophils [0-4 %] 1 % (08/26/14 2:15 PM) Basophils [0-2 %] 1 % (08/26/14 2:15 PM) Neutro Absolute 3.37 THOUS [1.90-7.00 THOUS] (08/26/14 2:15 PM) Lymph Absolute 2.40 THOUS [0.80-3.30 THOUS] (08/26/14 2:15 PM) Otero Absolute 0.50 THOUS [0.30-1.00 THOUS] (08/26/14 2:15 PM) Eos Absolute 0.09 THOUS [0.00-0.50 THOUS] (08/26/14 2:15 PM) Baso Absolute 0.04 THOUS [0.00-0.20 THOUS] (08/26/14 2:15 PM) Coagulation Most recent to 1 oldest [Reference Range]: INR [0.8-1.2] 0.8 1 (08/26/14:15 PM) 1Result Comment: Normal (no anticoagulant): 0.8 - 1.2 Units Routine Therapeutic Range: 2.0 - 3.0 Units High Risk Therapeutic Range: 2.5 - 3.5 Units Chemistry Most recent to 1 oldest [Reference Range]: Sodium Lvl [135-144 139 mEq/L mEq/L] (08/26/14:15 PM) Potassium Lvl 4.2 mEq/L [3.5-5.2 mEq/L] (08/26/14:15 PM) Chloride [99-111 105 mEq/L mEq/L] (08/26/14:15 PM) CO2 [22-31 mEq/L] 25 mEq/L (08/26/14 2:15 PM) AGAP [3-20] 9 (08/26/14:15 PM) BUN [10-20 mg/dL] 17 mg/dL (08/26/14:15 PM) Glucose Lvl [70-99 161 mg/dL mg/dL] *HI* (08/26/14 2:15 PM) Creatinine Lvl 0.88 mg/dL [0.57-1.11 mg/dL] (08/26/14:15 PM) eGFR [>60 mL/min] >60 mL/min 2 (08/26/14 2:15 PM) Calcium Lvl 9.8 mg/dL [8.9-10.5 mg/dL] (08/26/14:15 PM) Albumin Lvl [3.4-4.8 4.2 gm/dL gm/dL] (08/26/14 2:15 PM) Total Protein 7.1 gm/dL [6.2-8.1 gm/dL] (08/26/14 2:15 PM) Globulin [1.8-4.0 2.9 gm/dL gm/dL] (08/26/14 2:15 PM) ALT [0-55 unit/L] 38 unit/L (08/26/14 2:15 PM) AST [5-34 unit/L] 34 unit/L (08/26/14 2:15 PM) Alk Phos [40-150 56 unit/L unit/L] (08/26/14 2:15 PM) Bili Total [0.2-1.2 0.4 mg/dL mg/dL] (08/26/14 2:15 PM) Hgb A1c [4.1-5.6 %] 6.8 % *HI* (08/26/14 2:15 PM) eAvg Glucose 148.5 mg/dL (08/26/14 2:15 PM) 2Result Comment: Multiply eGFR results by 1.21 for race. Immunizations Vaccine Date Refusal Reason influenza virus vaccine, inactivated1 03/01/14 influenza virus vaccine, live 03/02/13 1Result Comment: [03/08/2014] see scanned doc. Procedures Procedure Date Related Diagnosis Body Site Collection of venous blood by venipuncture 08/26/14 Colonoscopy1 2011 Hysterectomy2 1989 Excision of basal cell carcinoma 82431 C-Scope W/2 Adenomatous 2TAH-BSO Fro Endometriosis and Ovarian Cysts Social History Social History Type Response Smoking Status Never smoker Assessment and Plan Extracted from: Title: Ambulatory Patient Education Author: Sravani Min APRN Date : 08/26/14 Family Medicine Incentive Spirometer An incentive spirometer is a tool that can help keep your lungs clear and active. This tool measures how well you are filling your lungs with each breath. Taking long deep breaths may help reverse or decrease the chance of developing breathing (pulmonary ) problems (especially infection) following: Surgery of the chest or abdomen. Surgery if you have a history of smoking or a lung problem. A long period of time when you are unable to move or be active. BEFORE THE PROCEDURE If the spirometer includes an indictor to show your best effort, your nurse or respiratory therapist will set it to a desired goal. If possible, sit up straight or lean slightly forward. Try not to slouch. Hold the incentive spirometer in an upright position. INSTRUCTIONS FOR USE 1. Sit on the edge of your bed if possible, or sit up as far as you can in bed or on a chair. 2. Hold the incentive spirometer in an upright position. 3. Breathe out normally. 4. Place the mouthpiece in your mouth and seal your lips tightly around it. 5. Breathe in slowly and as deeply as possible, raising the piston or the ball toward the top of the column. 6. Hold your breath for 3-5 seconds or for as long as possible. Allow the piston or ball to fall to the bottom of the column. 7. Remove the mouthpiece from your mouth and breathe out normally. 8. Rest for a few seconds and repeat Steps 1 through 7 at least 10 times every 1-2 hours when you are awake. Take your time and take a few normal breaths between deep breaths. 9. The spirometer may include an indicator to show your best effort. Use the indicator as a goal to work toward during each repetition. 10. After each set of 10 deep breaths, practice coughing to be sure your lungs are clear. If you have an incision (the cut made at the time of surgery) , support your incision when coughing by placing a pillow or rolled up towels firmly against it. Once you are able to get out of bed, walk around indoors and cough well. You may stop using the incentive spirometer when instructed by your caregiver. RISKS AND COMPLICATIONS Breathing too quickly may cause dizziness. At an extreme, this could cause you to pass out. Take your time so you do not get dizzy or light-headed. If you are in pain, you may need to take or ask for pain medication before doing incentive spirometry. It is harder to take a deep breath if you are having pain. AFTER USE Rest and breathe slowly and easily. It can be helpful to keep track of a log of your progress. Your caregiver can provide you with a simple table to help with this. If you are using the spirometer at home, follow these instructions: SEEK MEDICAL CARE IF: You are having difficultly using the spirometer. You have trouble using the spirometer as often as instructed. Your pain medication is not giving enough relief while using the spirometer. You develop fever of 100.5 F (38.1 C) or higher. SEEK IMMEDIATE MEDICAL CARE IF: You cough up bloody sputum that had not been present before. You develop fever of 102 F (38.9 C) or greater. You develop worsening pain at or near the incision site. MAKE SURE YOU: Understand these instructions. Will watch your condition. Will get help right away if you are not doing well or get worse. Document Released: 09/08/2007 Document Revised: 07/20/2012 Document Reviewed: [facility] Patient Information 2014 [employer]. No follow up information was provided. Extracted from: Title: Office Visit Note Author: Sravani Min APRN Date: 08/26/14 Assessment/Plan Pre-op examination Lab work and imaging ordered. Keep appt with cardiology for clearance. EKG to be done with cardiology. Will review lab work/imaging results before clearance.
--- OUTSIDE RECORDS SUMMARY | 2016-08-08 06:04 | XMS REPORT | Referral Summary ---
Author Author [facility], [facility] Organization [facility] Address Unknown Phone Unavailable Care Team Providers Care Director Private Music Therapy Agency Name Role Phone Levi Rowe Primary Care Physician [phone] Encounter VC Date(s): 10/28/14 - 10/28/14 [facility] [address] [place] [address] Discharge Diagnosis: Poorly controlled type 2 diabetes mellitus Discharge Diagnosis: Dysuria Discharge Diagnosis: Arrhythmia Discharge Disposition: 01-Home or Self Care Attending Physician: Levi Rowe DO Admitting Physician: Levi Rowe DO Vital Signs Most recent to 1 oldest [Reference Range]: Temperature Tympanic 35.9 degC [36.6-38.1 degC] *LOW* (10/28/14 10:01 AM) Peripheral Pulse 64 bpm Rate [60-100 bpm] (10/28/14 10:01 AM) Blood Pressure 122/72 mmHg [90-140/60-90 mmHg] (10/28/14 10:01 AM) Problem List Condition Effective Dates Status [...] DAILY, # 30 tabs, 1 Refill(s), eRx: [facility] #[id number], TAKE ONE TABLET BY MOUTH DAILY Start Date: 03/20/15 Status: Ordered Janumet XR 50 mg-1000 mg oral tablet, extended release 2 tabs, Oral, qPM, # 180 tabs, 3 Refill(s), Pharmacy: [facility] #[id number] Start Date: 12/16/14 Status: Ordered Lasix 40 mg oral tablet 1 tabs, Oral, Daily, # 90 tabs, 2 Refill(s), Pharmacy: [facility] 2428, 1 tabs Oral Daily Start Date: 08/19/14 Status: Ordered potassium chloride 10 mEq oral capsule, extended release See Instructions, TAKE ONE CAPSULE BY MOUTH DAILY, # 90 unknown unit, 2 Refill(s ), eRx: [facility] #[id number], TAKE ONE CAPSULE BY MOUTH DAILY Start Date: 01/23/15 Status: Ordered primidone 50 mg, Oral, BID, 0 Refill(s) Start Date: 03/29/14 Status: Ordered sotalol 120 mg oral tablet See Instructions, TAKE ONE TABLET BY MOUTH TWICE A DAY, # 60 tabs, 5 Refill(s), eRx: [facility] #[id number], TAKE ONE TABLET BY MOUTH TWICE A [...] DAILY, # 90 tabs, 1 Refill(s), eRx: [facility] #[id number], TAKE ONE TABLET BY MOUTH DAILY Start Date: 02/27/15 Status: Ordered Results Urinalysis Most recent to 1 oldest [Reference Range]: UA Color Yellow (10/28/14 10:37 AM) UA Appear Sl Cloudy (10/28/14 10:37 AM) UA pH [5.0-8.0] 5.5 (10/28/14 10:37 AM) UA Leuk Est Negative [Negative] (10/28/14 10:37 AM) UA Nitrite Negative [Negative] (10/28/14 10:37 AM) UA Protein Negative [Negative] (10/28/14 10:37 AM) UA Glucose Negative [Negative] (10/28/14 10:37 AM) UA Ketones Negative [Negative] (10/28/14 10:37 AM) UA Urobilinogen 0.2 mg/dL (10/28/14 10:37 AM) UA Bili [Negative] Negative (10/28/14 10:37 AM) UA Blood Pos 2+ *ABN* (10/28/14 10:37 AM) UA Spec Grav 1.025 [1.003-1.030] (10/28/14 10:37 AM) Type Voided (10/28/14 10:37 AM) UA WBC [0-4] 0-2 (10/28/14 10:37 AM) UA RBC [0-2] 5-10 *ABN* (10/28/14 10:37 AM) Epithelial Cells 5-10 (10/28/14 10:37 AM) UA Bacteria Occasional *ABN* (10/28/14 10:37 AM) Crystals Amorphous (10/28/14 10:37 AM) UA Hyal Cast 4-6 (10/28/14 10:37 AM) UA Mucous Present (10/28/14 10:37 AM) Microbiology Reports TEST: Urine Culture STATUS: Auth (Verified) BODY SITE: SOURCE: Urine COLLECTED DATE/TIME: 10/28/14 10:33 AM Urine Culture Escherichia coli 10-30,000 cfu/ml ORGANISM:Escherichia coli Immunizations Vaccine Date Refusal Reason influenza virus vaccine, inactivated1 03/01/14 influenza virus vaccine, live 03/02/13 1Result Comment: [03/08/2014] see scanned doc. Procedures Procedure Date Related Diagnosis Body Site Colonoscopy1 2011 Hysterectomy2 1989 Excision of basal cell carcinoma 94462 C-Scope W/2 Adenomatous 2TAH-BSO Fro Endometriosis and Ovarian Cysts Social History Social History Type Response Smoking Status Never smoker Assessment and Plan Extracted from: Title: Office Visit Note Author: ChelyLevi toney Date: 10/28/14 Assessment/Plan Arrhythmia 1. Based on today's EKG she is in sinus bradycardia. Report was discussed with Dr. Short mid-level and they report was faxed over. 2. Continue with recommendations as per Dr. Short. Ordered: Office Visit Level 3 Est 47348 Dysuria 1. She had trace of blood in her urine but no other findings consistent with urinary tract infection. 2. We will send her urine in for culture and sensitivity and make recommendations accordingly once we get reports. Ordered: Office Visit Level 3 Est 40257 Poorly controlled type 2 diabetes mellitus 1. Based on her home blood sugar readings, her blood sugars are poorly controlled. 2. Restart Janumet at one tablet daily. Samples given and off for a month. 3. Follow-up in one month for reevaluation, if she is tolerating this medication well then we'll extend therapy .
--- OUTSIDE RECORDS SUMMARY | 2016-08-08 06:04 | XMS REPORT | Referral Summary ---
Author Author [facility] Organization [facility] Address Unknown Phone Unavailable Care Team Providers Care Commutator Presser Name Role Phone Levi Rowe Primary Care Physician [phone] Encounter VC Date(s): 09/14/14 - 09/14/14 [facility] [address] [place], [place] [address] Discharge Disposition: 01-Home or Self Care [...] DAILY, # 30 tabs, 1 Refill(s), eRx: [facility] #[id number], TAKE ONE TABLET BY MOUTH DAILY Start Date: 03/20/15 Status: Ordered Janumet XR 50 mg-1000 mg oral tablet, extended release 2 tabs, Oral, qPM, # 180 tabs, 3 Refill(s), Pharmacy: [facility] #[id number] Start Date: 12/16/14 Status: Ordered Lasix 40 mg oral tablet 1 tabs, Oral, Daily, # 90 tabs, 2 Refill(s), Pharmacy: [facility] 2428, 1 tabs Oral Daily Start Date: 08/19/14 Status: Ordered potassium chloride 10 mEq oral capsule, extended release See Instructions, TAKE ONE CAPSULE BY MOUTH DAILY, # 90 unknown unit, 2 Refill(s ), eRx: [facility] #[id number], TAKE ONE CAPSULE BY MOUTH DAILY Start Date: 01/23/15 Status: Ordered primidone 50 mg, Oral, BID, 0 Refill(s) Start Date: 03/29/14 Status: Ordered sotalol 120 mg oral tablet See Instructions, TAKE ONE TABLET BY MOUTH TWICE A DAY, # 60 tabs, 5 Refill(s), eRx: [facility] #[id number], TAKE ONE TABLET BY MOUTH TWICE A [...] DAILY, # 90 tabs, 1 Refill(s), eRx: [facility] #[id number], TAKE ONE TABLET BY MOUTH DAILY Start Date: 02/27/15 Status: Ordered Results No data available for this section Immunizations Vaccine Date Refusal Reason influenza virus vaccine, inactivated1 03/01/14 influenza virus vaccine, live 03/02/13 1Result Comment: [03/08/2014] see scanned doc. Procedures Procedure Date Related Diagnosis Body Site Colonoscopy1 2011 Hysterectomy2 1989 Excision of basal cell carcinoma 47239 C-Scope W/2 Adenomatous 2TAH-BSO Fro Endometriosis and Ovarian Cysts Social History Social History Type Response Smoking Status Never smoker Assessment and Plan No data available for this section
[2016-08-08 06:28] VITALS: BP 138/71; PULSE 60; RESP 16; TEMP 97.7; O2SAT 95
[2016-08-08 06:29] VITALS: Ht 182.9 cm; Wt 116.7 kg
[2016-08-08] MEDS ORDERED: LIDOCAINE 1% (10mg/ml) 2ml SDV INJ ONE (07:00)
[2016-08-08] MEDS ORDERED: LR 1,000 ML IV SCH (07:00)
--- NOTE | 2016-08-08 07:22 | ANESPREOP ---
Anesthesia Record Date and Time DATE: 08/08/16 TIME: 07:20 Pre-Op Diagnosis hx of polyps Proposed Surgical Procedure COLONOSCOPY Allergies: Coded Allergies: Penicillins (Verified Allergy, Unknown, SWELLING, BLISTERS, 08/08/16) Sulfa (Sulfonamide Antibiotics) (Verified Allergy, Unknown, SWELLING, BLISTERS, 08/08/16) iodine (Verified Allergy, Unknown, INJ-STRONG FAM. HX OF RELATED TO IODINE INJ, 08/08/16) Quodagc-Oko-Svd Reductase Inhibitor (Verified Adverse Reaction, Unknown, MUSCLE WEAKNESS, 08/08/16) codeine (Verified Adverse Reaction, Unknown, N/V, 08/08/16) Uncoded Allergies: bandaids (Adverse Reaction, Unknown, 'TEAR UP MY SKIN', 08/23/14) Ht/Wt/BMI Height: 6 ' 0.00 " Weight: 116.700 kg BMI: 34.9 kg/m2 Vital Signs Date Time Temp Pulse Resp B/P Pulse Ox O2 Delivery O2 Flow Rate FiO2 08/08/16 06:28 97.7 60 16 138/71 95 Room Air Medications Inpatient Medications Current Medications Medications (Trade) Dose Ordered Sig/Carrington Start Time Stop Time Status Last Admin Dose Admin Lactated Ringer's (Lactated Ringers) 1,000 ml @ 30 mls/hr Q24H 08/08/16 07:00 08/08/16 06:59 30 MLS/HR Acetaminophen (Tylenol) 325 Mg Tablet, 650 MG PO QID Last Taken: on 08/07/16 2100 Ezetimibe (Zetia) 10 Mg Tablet, 10 MG PO HS, ( Reported) Last Taken: on 08/07/16 2100 Furosemide (Lasix) 40 Mg Tablet, 1 TAB PO DAILY , (Reported) Last Taken: on 08/07/16 0800 Glyburide (Glyburide) 5 Mg Tablet, 1 TAB PO DAILY, (Reported) Last Taken: on 08/06/16 Mv-Mn/Iron/FA/Herbal Cmplx#190 (Vitamin D3 Complete Caplet) 1 Each Tablet, 1 TAB PO DAILY, (Reported) Last Taken: on 07/25/16 Potassium Chloride (Potassium Chloride) 10 Meq Tab.er.prt, 1 TAB PO DAILY, (Reported) Last Taken: on 08/08/16 0530 Primidone (Primidone) 50 Mg Tablet, 50 MG PO BID, (Reported) Last Taken: on 08/08/16529 Rivaroxaban (Xarelto) 20 Mg Tablet, 1 TAB PO DAILY, (Reported) Last Taken: on 08/04/16 Sitagliptin Phos/Metformin HCl (Janumet Xr 50-1, 000 mg Tablet) 1 Each Tbmp.24hr, 1 TAB PO DAILY, (Reported) Last Taken: on 08/06/16 Sotalol HCl (Sotalol) 120 Mg Tablet, 1 TAB PO BID, (Reported) Last Taken: on 08/08/16529 Currently on Beta Juan: Yes Beta Juan Last Taken: 08-08-16529 Medical/Surgical History Anesthesia PMH: Reports: *Diabetes (ORAL MEDS), *Hypertension (TAKES MEDS), * CT (2009 MAY HAVE (LOOKED LIKE SOMETHING HAPPENING ON EKG) NOT DX - EWY), Anesthesia Reactions (REMEMBERS BEING PARALYZED BEFORE GOING TO SLEEP W/ HYST. NO AIRWAY ISSUES), Arthritis (KNEES), Cancer (SKIN CANCER ON NOSE-SURGICAL TREATMENT ONLY), Clotting Problems (TAKES XARELTO), Headaches (STRESS RELATED), Hiatal Hernia (NOT DX BUT SHE "KNOWS" SHE HAS ONE), Obesity, Pneumonia (TWICE - LAST TIME OVER 10 YEARS AGO), Reflux (OCC), Denies: *Angina, *Dyspnea, Asthma, Blood Transfusion Reac, CHF, COPD, CVA/Stroke/TIA, Deep Vein Thrombosis, Glaucoma, Hepatitis, Malignant Hyperthermia, Renal Disease, Rheumatic Fever, Seizures, Sleep Apnea, Thyroid Disease, Tuberculosis Smoking Status: Never smoker Has pt. smoked today?: No Use Chewing Tobacco?: No Second Hand Exposure: No Substance Use Type: does not use Substance last used: unknown Alcohol Intake: rarely Last Drink: unknown HX of Last Menstrual Period: TOTAL HYST. Past Surgical History Orthopedic Surgeries: Yes - R. TKR Abdominal Surgeries: No Genitourinary Surgeries: No Cardiac Surgeries: No Endocrine Surgeries: No Reproductive Surgeries: Yes - KEYUR/APPY; D&C Neurological Surgeries: No Ear Surgeries: No Nose Surgeries: Yes - REMOVAL OF SKIN CA Throat Surgeries: No Other Surgeries: Yes - COLONOSCOPY Anesthesia Adverse Reactions: FOUND none Family Hx of Anesthesia Advers: none Hx of Motion Sickness: No Pertinent Findings EKG Rhythm: Atrial Fibrillation Physical Exam Respiratory: Bilat breath sounds equal, Lungs clear Cardiovascular: FOUND Regular rate, rhythm, FOUND No murmur Airway Assessment Mallampati Score: II TMD: 3 Fingerbreadths Neck Extension: Good Overall Assessment: No Airway Concerns ASA: 2 Plan Anesthesia Plan: TIVA Discussion Discussed risks/options/alternatives of anesthesia and questions answered. Patient consents. Nursing pain assessment noted. Present: Spouse Attestation Statement Prior to the delivery of any anesthetic medication, I examined the patient, developed the plan, obtained the patient's consent and discussed the risk and benefits of the procedure with the patient/guardian. ADAM TURNER COMPOSITE LAYUP WORKER Aug 08, 2016 07:22
[2016-08-08] MEDS ORDERED: LIDOCAINE 1% (10mg/ml) 2ml SDV ONE (07:31)
[2016-08-08] MEDS ORDERED: PROPOFOL 500mg 50 ML IV ONE (07:31)
[2016-08-08 08:27] VITALS: BP 120/62; PULSE 54; RESP 12; TEMP 97; O2SAT 97
[2016-08-08 08:35] VITALS: BP 127/67; PULSE 53; RESP 20; O2SAT 96
--- NOTE | 2016-08-08 08:40 | ANESPO ---
Post-Op Note Date 08/08/16 Time: 08:39 Status Pt Participated in Evaluation: Pt participated in person Vital Signs Date Time Temp Pulse Resp B/P Pulse Ox O2 Delivery O2 Flow Rate FiO2 08/08/16 08:27 97.0 54 12 120/62 97 Room Air Respiratory Function: Airway patent, Regular respirations Cardiovascular Function: Regular pulse Mental Status: Alert/oriented Pain Level Intensity: 0 (0) Hydration: Taking po fluids, IV infusing Complications during Recovery None apparent Post-Anesthesia Notes pt. megan. well Follow-Up Instructions Instructions Per Surgeon Additional Information none ADAM TURNER CRNA Aug 08, 2016 08:40
[2016-08-08 08:50] VITALS: BP 123/67; PULSE 52; RESP 20; O2SAT 96
[2016-08-08 09:00] VITALS: BP 135/71; PULSE 56; RESP 20; O2SAT 96
--- NOTE | 2016-08-08 09:37 | OPNOTEF ---
DATE OF PROCEDURE 08/08/2016 SURGEON Johnson Palacios MD PREOPERATIVE DIAGNOSIS Personal history for adenomatous colon polyps. POSTOPERATIVE DIAGNOSIS Personal history for adenomatous colon polyps, colonic polyps located near anal verge, hepatic flexure, sigmoid diverticulosis, prominent ileocecal valve. PROCEDURE Colonoscopy with polypectomies near anal verge and at hepatic flexure, biopsies from ileocecal valve via cold biopsy technique. ANESTHESIA TIVA BRIEF HISTORY/INDICATIONS Mrs. Serna is a 66-year-old female who a little over three years ago underwent a colonoscopy and was found have multiple adenomatous colon polyps. The patient presents today to undergo a followup colonoscopy. For completeness, please refer to notes included in the patient's chart. FINDINGS Upon colonoscopy the patient was found a moderate number of diverticula within the sigmoid colon region. The patient was found to have a polyp near the anal verge that was on the order about 5-6 mm in diameter, removed in its entirety via cold biopsy technique. She was additionally found to have a synchronous polyp near the hepatic flexure that was also on the order of about 6 mm in diameter, removed in its entirety via cold biopsy technique. She was found to have quite a few diverticula within the sigmoid colon region. There was no evidence for angiodysplastic lesions or jaret allergies. The ileocecal valve was fairly prominent and did prolapse into the cecum. It did not appear to be suspicious in nature. Nonetheless, to err on the cautious side, a few biopsies were obtained from overlying the prominent ileocecal valve via cold biopsy technique. DESCRIPTION OF PROCEDURE After informed consent was obtained, the patient was brought to the endoscopy suite and placed on the table in left lateral decubitus position. The patient subsequently underwent total intravenous anesthesia by the nurse plc technician per my request. Formal time-out was then completed. Next, a digital rectal examination was performed. Normal sphincter tone. No rectal mass was appreciated. An Olympus colonoscope was inserted in the anus and advanced with the lumen of the colon under direct visualization at all times till the cecum was ascertained. Triangulation of taenia coli, ileocecal valve and appendiceal lumen were all visualized. As stated above, the ileocecal valve was fairly prominent and did prolapse into the cecum. The valve itself appeared to contain small bowel mucosa. There was no underlying neoplastic process present. Nonetheless, a few biopsies were obtained from the ileocecal valve via cold biopsy technique. Scope was then slowly withdrawn, again maintaining visualization of the lumen at all times. As stated above, the patient was found have two polyps located near the hepatic flexure and adjacent to the anal verge. Both of these polyps were removed in their entirety via cold biopsy technique and placed within separate containers. The patient was found to have quite a few diverticula within the sigmoid colon region and the sigmoid colon itself was fairly torturous in nature. There was, however, no evidence for angiodysplastic lesions or jaret allergies. The scope was continued to be slowly withdrawn till it was brought forth back to rectal vault. Once the scope was withdrawn back into the rectal vault, a J maneuver was then performed. As stated above, one could see a small polyp near the anal verge which was grasped and removed in its entirety via cold biopsy technique. The scope was allowed to straighten and withdrawn through the anal verge. The patient tolerated the procedure without difficulty and was sent back to the preop area in stable condition. Will await the biopsy results from today's two polypectomies and from biopsies from the prominent ileocecal valve and proceed accordingly with further recommendations thereafter. [id number]
== END 2016-08-08 09:10 | disposition home or self-care (01) ==
LOC: NSC 05:58
PROVIDERS: ATTEND Surgery
DX: Z12.11 Encounter for screening for malignant neoplasm of colon (principal); D12.3 Benign neoplasm of transverse colon; K62.0 Anal polyp; Z86.010 Personal history of colon polyps; K57.30 Diverticulosis of large intestine without perforation or abscess without bleeding; E78.00 Pure hypercholesterolemia, unspecified; E11.9 Type 2 diabetes mellitus without complications; I10 Essential (primary) hypertension; Z79.02 Long term (current) use of antithrombotics/antiplatelets; Z79.899 Other long term (current) drug therapy
CPT/HCPCS: 45380; 82948; J2704; J7120